=== PATIENT | female | born 1985 | race Caucasian/White ===

== ENCOUNTER 2020-09-20 12:00 | Emergency (ER) | payer OTHER, SELFPAY ==
--- NOTE | ~2020-09-20 | XR_ITS ---
EXAMINATION: XR foot LT min 3V DATE: 09/20/2020 12:28 INDICATION: Left foot injury. TECHNIQUE: 4 views of left foot were obtained. COMPARISON: None. FINDINGS: Bone alignment is normal. No fracture. There is mild osteoarthritis of first metatarsophala ngeal joint and talonavicular joint. There are enthesophytes at the posterior and plantar aspects of calcaneal tuberosity. IMPRESSION: 1. Mild polyarticular osteoarthritis. Reviewed, dictated and finalized at location A. ANOLOGY PROFESSOR
[2020-09-20 12:19] VITALS: BP 134/83; PULSE 70; RESP 18; TEMP 36.8; O2SAT 100
--- NOTE | 2020-09-20 12:27 | ED.LOWEXIN ---
HPI - Extremity Injury (Lower) General Chief Complaint: Extremity Injury, Lower Stated Complaint: Left Foot Pain Time Seen by Provider: 09/20/20 12:27 Source: patient Mode of arrival: ambulatory Limitations: no limitations History of Present Illness HPI Narrative: Kylah Mcdonald is a 35 yo female with a PMH of HTN who came to [facility] with pain in the fourth the fifth toe of the left foot after kicking hover board this morning.(6 hrs POA). She saw her PCP this morning and he told her to come get an x-ray. Rates pain as she rated pain as 9 out of 10 on her fourth toe her fifth toe feels numb Related Data Home Medications Medication Instructions Recorded Confirmed hydrochlorothiazide [HydroDiuril] 25 mg PO DAILY 09/20/20 09/20/20 Allergies Allergy/AdvReac Type Severity Reaction Status Date / Time amoxicillin Allergy Unknown unknown Verified 07/19/18 19:59 clavulanic acid Allergy Unknown unknown Verified 07/19/18 19:59 desloratadine Allergy Unknown unknown Verified 07/19/18 19:59 ketorolac Allergy Unknown unknown Verified 07/19/18 19:59 Review of Systems Review of Systems: Narrative: CONSTITUTIONAL: Denies fever, chills, sweats. EYES: Denies visual changes, redness, discharge. ENT: Denies rhinorrhea, congestion, sore throat, otalgia. CARDIOVASCULAR: Denies chest pain, palpitations, edema. RESPIRATORY: Denies dyspnea, wheezing, cough GASTROINTESTINAL: Denies abdominal pain, nausea, vomiting, diarrhea. GENITOURINARY: Denies dysuria, hematuria, abnormal discharge SKIN: Denies rash or itching. NEUROLOGIC: Denies numbness, or focal weakness. PSYCHIATRIC: Denies anxiety or depression. Left foot pain in the fourth and fifth toe, moderate swelling PMFSH Past Medical History Medical History HTN (hypertension) Family History Family History Other Hypertension Social History Social History (Updated 09/20/20 @ 12:29 by Linda Mccabe CNP) Smoking status: Never smoker Alcohol intake: current Comments At time of signature, I agree with nursing past medical, surgical, social and family history. There is no relevant family history pertinent to the presenting complaint. Exam Narrative: Exam Narrative: GENERAL: This is a well-nourished, well-developed patient, in moderate distress. HEAD: normocephalic, atraumatic. EYES: Sclera clear/white. Vision is grossly intact. EARS: External ears normal. Hearing grossly intact. NOSE: External nose normal without nasal discharge, nares without redness, no rhinorrhea. THROAT: Mucous membranes moist, NECK: Neck supple, CARDIOVASCULAR: Regular rate and rhythm without murmurs, gallops, or rubs. RESPIRATORY: Clear to auscultation. Breath sounds equal bilaterally. No wheezes, rales, or rhonchi. GASTROINTESTINAL: Abdomen soft, SKIN: warm, intact with no suspicious lesions or rash, good texture and turgor. NEURO: awake, alert, and oriented to person, place and time. There were no obvious focal neurologic abnormalities. Steady gait EXTREMITIES: Normal range of motion. Left foot fourth and fifth toe redness in her fifth toe on the distal and m moderate pain in the fourth and fifth toe, toes are taped and she states that they really hurts when she tries to walk BACK: Nontender without deformity Course Course Emergency Course: Marylou Mcdonald is a 35-year-old female who had her foot on a hover board this morning around 6:00, complaining of pain in her fourth and fifth toe X-ray shows mild polyarticular osteoarthritis Nurse Arnoldo taped toes, postop shoe, neurovascularly intact, started on [place], ice. elevation -follow-up with PCP Vital Signs Vital signs: Vital Signs Temperature 98.3 F 09/20/20 12:19 Pulse Rate 70 09/20/20 12:19 Respiratory Rate 18 09/20/20 12:19 Blood Pressure 134/83 09/20/20 12:19 Pulse Oximetry 100 09/20/20 12:19 Temperature 98.
== END 2020-09-20 12:55 | disposition home or self-care (01) ==
PROVIDERS: Emergency Provider Nurse Practitioner; PCP Family Medicine
DX: S93.505A Unspecified sprain of left lesser toe(s), initial encounter (principal); W22.8XXA Striking against or struck by other objects, initial encounter; I10 Essential (primary) hypertension
CPT/HCPCS: 73630; 99213; G0463

== ENCOUNTER 2021-04-09 09:39 | Emergency (ER) | payer OTHER, SELFPAY ==
[2021-04-09 10:10] VITALS: BP 145/97; PULSE 90; RESP 16; TEMP 36.4; O2SAT 99
--- NOTE | 2021-04-09 11:23 | ED.GENADULT ---
HPI - General Adult General Chief complaint: Upper Respiratory Infection Stated complaint: cough/sore throat/congestion Source: patient Mode of arrival: ambulatory Limitations: no limitations History of Present Illness HPI narrative: Patient is a 36-year-old female who presents to the [facility] via POV for evaluation of a sore throat that began 3 to 4 days ago. She also reports dry cough, nasal congestion, and myalgias. Additionally, she reports pain with deep inspiration. Tylenol provides minimal relief. Swallowing worsens throat pain. She reports her throat pain feels like strep . She has not vaccinated against Covid. She denies known exposure or sick contacts. Patient is requesting Covid testing since her employer is requiring a negative test to return to work. Related Data Home Medications Medication Instructions Recorded Confirmed hydrochlorothiazide [HydroDiuril] 25 mg PO DAILY 09/20/20 04/09/21 Allergies Allergy/AdvReac Type Severity Reaction Status Date / Time amoxicillin Allergy Unknown unknown Verified 04/09/21 10:36 clavulanic acid Allergy Unknown unknown Verified 04/09/21 10:36 desloratadine Allergy Unknown unknown Verified 04/09/21 10:36 ketorolac Allergy Unknown unknown Verified 04/09/21 10:36 Review of Systems Review of Systems: Pertinent negatives: fever, chills, poor p.o. intake, myalgias, flu-like symptoms, ear pain/drainage, sinus trouble, headache, rhinorrhea, lymphadenopathy, dizziness, LOC, inability to swallow, drooling, hoarseness, halitosis, abdominal pain, nausea, vomiting, diarrhea, cough, wheezing, sob, chest pain, heart murmurs, and heart palpations. PMFSH Past Medical History Medical History (Updated 04/09/21 @ 11:59 by CINDA Hall, ) HTN (hypertension) Family History Family History Other Hypertension Social History Social History Smoking status: Never smoker Alcohol intake: current Comments I have reviewed and agree with the patient's past medical, surgical, social, and family hx as documented by the RN. There is no relevant family history pertinent to the presenting complaint. Exam Narrative: GENERAL: Well-appearing, well-nourished, and in no acute distress. HEAD: Normocephalic, atraumatic. No sinus tenderness or facial swelling appreciated. EYES: PERRLA and EOMI. No evidence of erythema, swelling, or drainage. ENT: Bilateral external ears and ear canals normal. Bilateral TMs are normal.No TM perforation. Nares clear, no rhinorrhea or epistaxis. Bilateral turbinates moderately erythematous and edematous. Mucous membranes moist and pink. Uvula is midline without erythema and swelling. Bilateral tonsils are mildly erythematous subtle swelling. No evidence of petechial rash, cobblestoning, lesions, ulcers, exudates, peritonsillar abscess, tenting, or drooling. Breath odor and voice normal. NECK: Supple. No Lymphadenopathy or nuchal rigidity appreciated. CHEST: Bilateral lung rooney are clear to auscultation. No respiratory distress. No evidence of cough or pleuritic cp upon examination. HEART: Regular rate and rhythm. No murmur, gallop, or rub heard. EXTREMITIES: Normal range of motion. No edema. SKIN: Warm, dry, no rash. NEURO: No focal deficits. Alert and oriented x3. Course Vital Signs Vital signs: Vital Signs Temperature 97.6 F 04/09/21 10:10 Pulse Rate 90 04/09/21 10:10 Respiratory Rate 16 04/09/21 10:10 Blood Pressure 145/97 H 04/09/21 10:10 Pulse Oximetry 99 04/09/21 10:10 Temperature 97.6 F 04/09/21 10:10 Pulse Rate 90 04/09/21 10:10 Respiratory Rate 16 04/09/21 10:10 Blood Pressure 145/97 H 04/09/21 10:10 Pulse Oximetry 99 04/09/21 10:10 Due to an elevated blood pressure, I had a detailed discussion with the patient and/or guardian regarding the need for follow-up with
[2021-04-10 16:55] LABS: SARS-CoV-2 RNA PCR Negative
== END 2021-04-09 12:08 | disposition home or self-care (01) ==
PROVIDERS: Emergency Provider Nurse Practitioner Family; PCP Nurse Practitioner Family
DX: J06.9 Acute upper respiratory infection, unspecified (principal); Z20.822 Contact with and (suspected) exposure to COVID-19; I10 Essential (primary) hypertension
CPT/HCPCS: 87081; 87880; 99213; C9803; G0463; U0003; U0005

== ENCOUNTER 2021-07-11 10:52 | Emergency (ER) | payer OTHER, SELFPAY ==
[2021-07-11 11:14] VITALS: BP 148/87; PULSE 99; RESP 14; TEMP 37.3; O2SAT 98
== END 2021-07-11 12:00 | disposition left against medical advice (07) ==
PROVIDERS: PCP Nurse Practitioner Family
DX: Z53.21 Procedure and treatment not carried out due to patient leaving prior to being seen by health care provider (principal)
CPT/HCPCS: 99199

== ENCOUNTER 2021-07-11 16:24 | Emergency (ER) | payer OTHER, SELFPAY ==
--- NOTE | ~2021-07-11 | XR_ITS ---
EXAMINATION: XR chest 2V EXAM DATE: 07/11/2021 16:48 INDICATION: Shortness of breath. TECHNIQUE: Frontal and lateral projections of the chest obtained and reviewed. There is no prior tony dy for comparison. FINDINGS: The lungs are clear. There are no pleural effusions. The cardiomediastinal silhouette is within normal limits. There is no pneumothorax suspected. The bones and soft tissues are unremarkab le. IMPRESSION: Normal chest x-ray exam. Reviewed, dictated and finalized at location A. HER PRODUCTION MACHINE OPERATOR IMPRESSION: Normal chest x-ray exam.
--- NOTE | 2021-07-11 16:32 | ED.URI ---
HPI - URI/Sore Throat General Chief Complaint: Upper Respiratory Infection Stated Complaint: Covid Time Seen by Provider: 07/11/21 16:32 Source: patient, RN notes reviewed and old records reviewed Mode of arrival: ambulatory Limitations: no limitations History of Present Illness HPI Narrative: 36-year-old female presents to the [facility] with complaints of cough and shortness of breath. States she tested positive for Covid at home 2 days ago. Is concerned that she might have pneumonia. Patient states that she just started symptoms yesterday. Patient states that she does have a history of allergies and asthma. Has not had to use her inhaler. States she was very concerned for pneumonia Related Data Home Medications Medication Instructions Recorded Confirmed hydrochlorothiazide [HydroDiuril] 25 mg PO DAILY 09/20/20 07/11/21 metformin 500 mg PO BID 07/11/21 07/11/21 Allergies Allergy/AdvReac Type Severity Reaction Status Date / Time amoxicillin Allergy Unknown unknown Verified 07/11/21 16:33 clavulanic acid Allergy Unknown unknown Verified 07/11/21 16:33 desloratadine Allergy Unknown unknown Verified 07/11/21 16:33 ketorolac Allergy Unknown unknown Verified 07/11/21 16:33 Review of Systems Review of Systems: All systems reviewed & are unremarkable except as noted in HPI and below Constitutional: Constitutional: Reports as per HPI, Denies chills and Reports fever(s) Eyes: Eyes: Reports no additional eye complaints ENT: Reports system reviewed and no additional complaints, except as documented Cardiovascular: Cardiovascular: Denies chest pain Respiratory: Respiratory: Reports as per HPI, Denies chest congestion, Reports cough, Reports dyspnea and Denies wheezing Gastrointestinal: Gastrointestinal: Reports no additional gastrointestinal complaints, Denies abdominal pain, Denies diarrhea, Denies nausea and Denies vomiting Genitourinary: Genitourinary: Reports no additional female genitourinary complaints Musculoskeletal: Musculoskeletal: Reports as per HPI, Denies back pain and Reports myalgias Integumentary/Breasts: Skin/Breast: Reports system reviewed and no additional complaints, except as docu Neurologic: Reports system reviewed and no additional complaints, except as documented Psychiatric: Psychiatric: Reports no additional psychiatric complaints Allergic/Immunologic: Allergic/Immunologic: Reports no additional allergic/immunologic complaints PMFSH Past Medical History Medical History HTN (hypertension) Family History Family History Other Hypertension Social History Social History Smoking status: Never smoker Alcohol intake: current Comments At the time of my signature, I reviewed and agree with the nursing past medical, surgical, social, and family history. There is no relevant family history pertinent to the patient complaint. Exam Const: General: healthy appearing, no acute distress and alert Nutritional Appearance: well nourished and obese morbidly obese Orientation/consciousness: patient oriented x3 Limitations: no limitations HENMT: Head: normal to inspection Ears: external ears normal, TM's normal bilaterally and EAC's normal General nose exam: Normal external nose present and Nasal discharge present clear Face and sinus: normal facial exam and sinus tenderness frontal and maxillary Throat: tonsils normal, uvula midline and postnasal drainage Eyes: Conjunctivae: conjunctivae normal Pupils: Equal, round and reactive pupils present Neck: Neck: normal visual inspection, no lymphadenopathy and no meningeal signs Chest: Chest palpation & inspection: normal inspection of the chest Resp: Effort & Inspection: normal respiratory effort and no use of accessory muscles Auscultation: clear to auscultation bilaterally, no crackles, no rale
[2021-07-11 16:33] VITALS: BP 142/95; PULSE 93; RESP 18; TEMP 38.2; O2SAT 99
[2021-07-11 16:36] VITALS: BP 142/95; PULSE 93; RESP 18; TEMP 38.2; O2SAT 99
== END 2021-07-11 17:30 | disposition home or self-care (01) ==
PROVIDERS: Emergency Provider Nurse Practitioner; PCP Nurse Practitioner Family
DX: B34.9 Viral infection, unspecified (principal); I10 Essential (primary) hypertension
CPT/HCPCS: 71046; 87804; 99213; G0463

== ENCOUNTER 2021-09-30 16:33 | Emergency (ER) | payer OTHER, SELFPAY ==
--- NOTE | ~2021-09-30 | XR_ITS ---
EXAMINATION: XR lumbar spine 2-3V EXAM DATE: 09/30/2021 17:29 INDICATION: Mid low back pain today ? etiology unknown. TECHNIQUE: Lumber spine frontal, lateral, lateral L5-S1 projections for interpretation. There is no prior study for comparison. FINDINGS: No spondylolysis. Mild lumbar disc disease, mild and facet arthropathy. Sacrum, sacroiliac joints, sacral arcuate lines are intact. There are no bony erosions identified. Paraspinal soft tiss ue is unremarkable. IMPRESSION: 1. Mild lumbar spondylosis. 2. No acute findings. Reviewed, dictated and finalized at location G.
[2021-09-30 16:41] VITALS: BP 147/91; PULSE 88; RESP 16; TEMP 37.1; O2SAT 99
--- NOTE | 2021-09-30 16:43 | ED.BACK ---
HPI - Back Pain/Injury General Chief Complaint: Back Pain/Injury Stated Complaint: LOW BACK PAIN Time Seen by Provider: 09/30/21 16:48 Source: patient, family, RN notes reviewed and old records reviewed Mode of arrival: ambulatory Limitations: no limitations History of Present Illness HPI Narrative: 36-year-old female presents to the [facility] with complaints of mid lower back pain since 10 AM. States that she was bending over at 10 AM when she felt a pop in the lower spine area. Has a history of degenerative disc disease, PCOS, and arthritis. Reports taking Tylenol alternating with Motrin since pain started. Tried calling her primary care provider who is instructed to go to the [facility] or the emergency room for evaluation No loss or retention of bowel or bladder. No saddle anesthesia. Walks with a steady gait but appears to be uncomfortable. No numbness or tingling in extremities MD elicited complaint: back pain Related Data Home Medications Medication Instructions Recorded Confirmed hydrochlorothiazide [HydroDiuril] 25 mg PO DAILY 09/20/20 09/30/21 metformin 500 mg PO BID 07/11/21 09/30/21 albuterol sulfate 2 inh INHALATION PRN PRN 09/30/21 09/30/21 Allergies Allergy/AdvReac Type Severity Reaction Status Date / Time desloratadine Allergy Severe Anaphylaxis Verified 09/30/21 18:00 amoxicillin AdvReac Mild Gastrointestinal Verified 09/30/21 18:00 Upset clavulanic acid AdvReac Mild Gastrointestinal Verified 09/30/21 18:00 Upset ketorolac AdvReac Mild Hives Verified 09/30/21 18:00 Review of Systems Review of Systems: All systems reviewed & are unremarkable except as noted in HPI and below Constitutional: Constitutional: Reports no additional constitutional complaints, Denies fever(s) and Denies weakness Eyes: Eyes: Reports no additional eye complaints ENT: Reports system reviewed and no additional complaints, except as documented Cardiovascular: Cardiovascular: Reports no additional cardiovascular complaints and Denies chest pain Respiratory: Respiratory: Reports no additional respiratory complaints, Denies cough and Denies dyspnea Gastrointestinal: Gastrointestinal: Reports no additional gastrointestinal complaints, Denies abdominal pain, Denies nausea and Denies vomiting Genitourinary: Genitourinary: Denies urinary incontinence Musculoskeletal: Musculoskeletal: Reports as per HPI, Reports back pain (Center) and Denies numbness Integumentary/Breasts: Skin/Breast: Reports system reviewed and no additional complaints, except as docu Neurologic: Reports system reviewed and no additional complaints, except as documented, Denies focal weakness, Denies numbness and Denies weakness Psychiatric: Psychiatric: Reports no additional psychiatric complaints Allergic/Immunologic: Allergic/Immunologic: Reports no additional allergic/immunologic complaints PMFSH Past Medical History Medical History (Updated 09/30/21 @ 20:43 by Marylin Villasenor APRN) HTN (hypertension) Polycystic ovarian syndrome Family History Family History Mother Hypertension Social History Social History Smoking status: Never smoker Alcohol intake: current Comments At the time of my signature, I reviewed and agree with the nursing past medical, surgical, social, and family history. There is no relevant family history pertinent to the patient complaint. Exam Const: General: healthy appearing, no acute distress and alert Nutritional Appearance: well nourished Orientation/consciousness: patient oriented x3 Limitations: no limitations HENMT: Head: normal to inspection Ears: external ears normal Eyes: Pupils: Equal, round and reactive pupils present Neck: Neck: normal visual inspection, no lymphadenopathy and no meningeal signs Chest: Chest palpation & inspection: normal inspection of the chest Resp: Effort
== END 2021-09-30 17:47 | disposition home or self-care (01) ==
PROVIDERS: Emergency Provider Nurse Practitioner; PCP Nurse Practitioner Family
DX: S39.012A Strain of muscle, fascia and tendon of lower back, initial encounter (principal); X50.9XXA Other and unspecified overexertion or strenuous movements or postures, initial encounter; M47.816 Spondylosis without myelopathy or radiculopathy, lumbar region; I10 Essential (primary) hypertension; E28.2 Polycystic ovarian syndrome
CPT/HCPCS: 72100; 99213; G0463

== ENCOUNTER → 2022-02-09 10:42 | Outpatient (CLI) | payer OTHER, SELFPAY ==
--- NOTE | ~2022-02-09 | US_ITS ---
EXAMINATION: US thyroid DATE: 02/09/2022 11:10 INDICATION: Goiter TECHNIQUE: Multiple ultrasound images of the thyroid were obtained. COMPARISON: None. FINDINGS: The right thyroid lobe measures 5.0 x 1.6 x 1.8 cm. The left thyroid lobe measures 4.7 x 1.7 x 1.4 c m. 11 mm wider than tall solid isoechoic, centrally hypoechoic nodule with ill-defined margins and w ithout echogenic foci in the left thyroid lobe. (TI-RADS 4, moderately suspicious , FNA if >=1.5 cm, annual followup is >=1 cm). No other thyroid nodules identified. There is normal echotexture, echogen icity and vascular flow throughout the thyroid gland. IMPRESSION: 1. 11 mm TI-RADS 4 left thyroid nodule for which annual follow-up ultrasound would be recommended. Reviewed, dictated and finalized at location A. IMPRESSION: 1. 11 mm TI-RADS 4 left thyroid nodule for which annual follow-up ultrasound wo uld be recommended.
== END ==
PROVIDERS: PCP Internal Medicine Endocrinology, Diabetes & Metabolism; Visit Provider Internal Medicine Endocrinology, Diabetes & Metabolism
DX: E04.1 Nontoxic single thyroid nodule (principal)
CPT/HCPCS: 76536

== ENCOUNTER 2022-08-18 11:54 | Outpatient (CLI) | payer OTHER, SELFPAY ==
--- NOTE | ~2022-08-18 | XR_ITS ---
Supine and upright views of the abdomen Clinical history: Abdominal pain Findings: Bowel gas pattern is nonspecific. No evidence for obstruction or free air. No abnormal mass lesion or calcification is seen. Osseous structures are intact. Impression: No significant abnormality is seen. Reviewed, dictated and finalized at [facility]. L CUSTODIAN Impression: No significant abnormality is seen.
== END 2022-08-18 11:55 | disposition home or self-care (01) ==
PROVIDERS: PCP Nurse Practitioner Family; Visit Provider Nurse Practitioner Family
DX: R10.9 Unspecified abdominal pain (principal)
CPT/HCPCS: 74019

== ENCOUNTER 2022-10-24 10:40 | Emergency (ER) | payer OTHER, SELFPAY ==
--- NOTE | ~2022-10-24 | US_ITS ---
EXAMINATION: US OB <=14 wk fetus w TV DATE: 10/24/2022 12:18 INDICATION: Spotting during first trimester TECHNIQUE: Real-time pelvic transabdominal and transvaginal ultrasound was performed. COMPARISON: None. FINDINGS: The uterus measures 12.9 x 7.2 x 5.9 cm. There is an intrauterine gestational sac. The feta l pole is not visualized. The mean sac diameter measures 1.8 cm, which correlates with an estimated g estational age of 6 weeks and 5 day(s) (+/-) 4 day(s). The ovaries are not visualized however no adnexal abnormality is seen. There is no free fluid in the pelvis. IMPRESSION: 1. Intrauterine gestational sac with an estimated gestational age of 6 weeks and 5 day(s) (+/-) 4 day (s) and an estimated delivery date of 06/14/2023 based on mean sac diameter. pole not yet visual ized, possibly due to early . Reviewed, dictated and finalized at location A. IMPRESSION: 1. Intrauterine gestational sac with an estimated gestational age of 6 weeks an d 5 day(s) (+/-) 4 day(s) and an estimated delivery date of 06/14/2023 based on mean sac diameter. pole not yet visualized, possibly due to early pregnan cy.
[2022-10-24 10:43] VITALS: BP 161/93; PULSE 90; RESP 16; TEMP 36.7; O2SAT 100
[2022-10-24 11:00] LABS: Basophils Percent Auto 0.4 % (0.2-1.2); Eosinophils Absolute Auto 0.2 K/mm3 (0-0.3); Eosinophils Percent Auto 2.2 % (0-4.4); Hematocrit 39.5 % (37.0-47.0); Hemoglobin 12.7 g/dL (12.0-15.0); Immature Granulocyte Absolute 0.03 K/mm3 (0.00-0.031); Immature Granulocyte Percent A 0.3 % (0-0.5); Lymphocytes Absolute Auto 1.83 K/mm3 (0.9-3.2); Lymphocytes Percent Auto 19.4 % (18.3-44.2); Mean Corpuscular HGB Conc 32.2 g/dl (32-36); Mean Corpuscular Hemoglobin 28.6 pg (26-34); Monocytes Absolute Auto 0.4 K/mm3 (0.1-0.6); Monocytes Percent Auto 4.4 % (2.6-8.5); Neutrophils Absolute Auto 6.9 K/mm3 (1.3-6.7); Neutrophils Percent Auto 73.3 % (45.5-73.1); Platelet Count Result 268 k/mm3 (150-375); Red Blood Count 4.44 M/mm3 (4.2-5.4); Red Cell Distribution Width 14.6 % (11.5-14.5); White Blood Count 9.4 K/mm3 (4.5-10.0)
--- NOTE | 2022-10-24 12:45 | ED.GENADULT ---
HPI - General Adult General Chief complaint: Vaginal Bleeding Stated complaint: Newly with abdominal cramps Time Seen by Provider: 10/24/22 11:34 History of Present Illness HPI narrative: Patient is a 37-year-old female who presents to the ER with vaginal bleeding and spotting. Spotting x3 today. Found out 4 days ago she was and has had 2 beta hCGs. She is a positive. She is a G8, P2 SAB 5. She gets her care through [facility] [place]. She is also had an ultrasound that showed a gestational sac at 6 weeks and 2 days couple days ago. Patient reports she is having some mild cramping and some nausea. Related Data Home Medications Medication Instructions Recorded Confirmed hydrochlorothiazide 25 mg tablet 25 mg PO DAILY 09/20/20 09/30/21 metformin 500 mg tablet,extended 500 mg PO BID 07/11/21 09/30/21 release 24 hr albuterol sulfate 90 mcg/actuation 2 inh inhalation PRN PRN Shortness 09/30/21 09/30/21 aerosol inhaler Of Breath Or Wheezing Allergies Allergy/AdvReac Type Severity Reaction Status Date / Time desloratadine Allergy Severe Anaphylaxis Verified 10/24/22 11:35 amoxicillin AdvReac Mild Gastrointestinal Verified 10/24/22 11:35 Upset clavulanic acid AdvReac Mild Gastrointestinal Verified 10/24/22 11:35 Upset ketorolac AdvReac Mild Hives Verified 10/24/22 11:35 Review of Systems Review of Systems: All systems reviewed & are unremarkable except as noted in HPI and below Constitutional: Constitutional: Denies chills and Denies fever(s) Cardiovascular: Cardiovascular: Denies chest pain, Denies rapid heart rate and Denies radiating jaw, neck or arm pain Respiratory: Respiratory: Denies cough and Denies dyspnea Gastrointestinal: Gastrointestinal: Denies abdominal pain, Reports nausea and Denies vomiting Genitourinary: Genitourinary: Reports abnormal vaginal bleeding, Denies dysuria and Denies pelvic pain PMF Past Medical History Medical History (Updated 10/24/22 @ 13:01 by Massimo Barroso MD) HTN (hypertension) Polycystic ovarian syndrome Family History Family History Mother Hypertension Social History Social History (Reviewed 03/22/22 @ 20:42 by JOSS Bhatti Smoking status: Never smoker Alcohol intake: current Exam Narrative: GENERAL: Well-appearing, morbidly obese, and in no acute distress. HEAD: Normocephalic, atraumatic. ENT: Mucous membranes moist. CHEST: Clear to auscultation. No respiratory distress. HEART: Regular rate and rhythm. Normal peripheral pulses. ABDOMEN: Soft, nontender, nondistended. EXTREMITIES: Normal range of motion. No edema. SKIN: Warm, dry, no rash. NEURO: Alert and oriented x3. PSYCH: Normal mood and affect. Course Course Emergency Course: Patient informed of lab and imaging results. Her beta-hCG is trending upward from 12,000 and is currently at 18,600. Her gestational sac measures 6 weeks 5 days but is still without pole which she is aware of. She has being diagnosed with a threatened miscarriage and she is understanding of this as well. She will be discharged and we recommend follow-up with her OB. Vital Signs Vital signs: Vital Signs Temperature 98.0 F 10/24/22 10:43 Pulse Rate 90 10/24/22 10:43 Respiratory Rate 16 10/24/22 10:43 Blood Pressure 161/93 H 10/24/22 10:43 Pulse Oximetry 100 10/24/22 10:43 Oxygen Delivery Room Air 10/24/22 10:43 Temperature 98.0 F 10/24/22 10:43 Pulse Rate 90 10/24/22 10:43 Respiratory Rate 16 10/24/22 10:43 Blood Pressure 161/93 H 10/24/22 10:43 Pulse Oximetry 100 10/24/22 10:43 Oxygen Delivery Room Air 10/24/22 10:43 Medical Decision Making Vital Signs Vital Signs: Vital Signs Temperature 98.0 F 10/24/22 10:43 Pulse Rate 90 10/24/22 10:43 Respiratory Rate 16 10/24/22 10:43 Blood Pressure 161/93 H 10/24/22 10:43 Pulse Oximetry 100
== END 2022-10-24 13:17 | disposition home or self-care (01) ==
PROVIDERS: Emergency Provider Emergency Medicine; PCP Nurse Practitioner Family
DX: O20.0 Threatened abortion (principal); O10.911 Unspecified pre-existing hypertension complicating pregnancy, first trimester; O99.281 Endocrine, nutritional and metabolic diseases complicating pregnancy, first trimester; E28.2 Polycystic ovarian syndrome; Z79.84 Long term (current) use of oral hypoglycemic drugs; Z3A.01 Less than 8 weeks gestation of pregnancy
CPT/HCPCS: 36415; 76801; 76817; 84702; 85025; 85461; 86850; 86900; 86901; 99284

== ENCOUNTER 2023-02-12 14:20 | Outpatient (CLI) | payer OTHER, SELFPAY ==
[2023-02-12] VITALS (7 sets, daily range): BP systolic 125–148; BP diastolic 64–71; PULSE 82–97; RESP 18–20; TEMP 36.2–36.7; BMI 58.1
--- NOTE | 2023-02-12 15:40 | PC.NURSE ---
Dr. Bloom informed of pt's arrival at 22 4/7 wks with c/o frontal headache since noon that she currently rates as 8 out of 10. Has had halos, spots, and stars since her headache started. Pt has history of migraines with these same visual auras that normally resolve with Tylenol and sleep. Pt also feeling intermittent sharp/ stabbing right upper abdominal pain she rates as a 6 out of 10. Denies heartburn or reflux. Pt has CHTN that she takes HCTZ for. Informed of BP's. Obtained 30 mins of intermittent FHR tracing on baby- FHT's 150's. Orders received for labs, Tylenol, and Pepcid.
[2023-02-12] MEDS: ACETAMINOPHEN 500 MG TABLET 1000 MG PO (16:10)
[2023-02-12] MEDS: FAMOTIDINE 20 MG TABLET PO (16:14)
[2023-02-12 16:25] LABS: Basophils Percent Auto 0.2 % (0.2-1.2); Eosinophils Absolute Auto 0.1 K/mm3 (0-0.3); Eosinophils Percent Auto 0.9 % (0-4.4); Hematocrit 31.9 % (37.0-47.0); Hemoglobin 10.5 g/dL (12.0-15.0); Immature Granulocyte Absolute 0.04 K/mm3 (0.00-0.031); Immature Granulocyte Percent A 0.4 % (0-0.5); Lymphocytes Absolute Auto 1.36 K/mm3 (0.9-3.2); Lymphocytes Percent Auto 13.3 % (18.3-44.2); Mean Corpuscular HGB Conc 32.9 g/dl (32-36); Mean Corpuscular Hemoglobin 29.3 pg (26-34); Mean Corpuscular Volume 89.1 fl (80-100); Mean Platelet Volume 9.5 fl (7.4-10.4); Monocytes Absolute Auto 0.7 K/mm3 (0.1-0.6); Monocytes Percent Auto 6.6 % (2.6-8.5); Neutrophils Percent Auto 78.6 % (45.5-73.1); Platelet Count Result 253 k/mm3 (150-375); Red Blood Count 3.58 M/mm3 (4.2-5.4); Red Cell Distribution Width 14.7 % (11.5-14.5); White Blood Count 10.2 K/mm3 (4.5-10.0)
[2023-02-12 16:31] LABS: Add Urine Microscopic? YES; Appearance Urine Clear (Clear); Bilirubin Urine Negative (Negative); Blood Urine Negative (Negative); Color Urine Yellow (Yellow); Glucose Urine UA Negative (Negative); Ketones Urine 1+ mg/dL (Negative); Leukocyte Esterase Ur Negative LEU/UL (Negative); Nitrate Urine Negative (Negative); Protein Urine Negative (Negative); Urobilinogen Urine 0.2 mg/dL (<2.0)
[2023-02-12 16:34] LABS: Creatinine Urine 29.5 mg/dL; Total Protein Urine Random 7 mg/dL; Ur Ttl Prot Creatinine Ratio 0.24 mg/mg (0-0.20)
[2023-02-12 16:45] LABS: Potassium 3.4 mmol/L (3.4-5.0)
[2023-02-12 16:55] LABS: Alanine Aminotransferase 17 U/L (6-35); Albumin Level 3.3 g/dL (3.5-5.1); Alkaline Phosphatase 54 U/L (38-126); Anion Gap 8 mmol/L (8-16); Aspartate Amino Transferase 16 U/L (14-36); Bilirubin,Total 0.2 mg/dL (0.2-1.3); Blood Urea Nitrogen 9 mg/dL (7-17); Carbon Dioxide 21 mmol/L (22-30); Chloride 104 mmol/L (98-107); Estimated Glomerular Filt Rate > 60; Glucose 105 mg/dL (65-110); Sodium 133 mmol/L (137-145); Uric Acid 4.9 mg/dL (2.5-7.5)
--- NOTE | 2023-02-12 17:52 | PC.NURSE ---
Dr. Bloom informed of lab results. Pt just feeling a dull headache now that she rates a 4 and a dull RUQ ache she rates a 2. Still has the visual disturbance, but pt states she usually has that for 1 day after her migraine. Order received to discharge pt to home with instructions/ supplies for a 24 hr urine collection.
== END 2023-02-12 18:45 | disposition home or self-care (01) ==
LOC: ANHOBOP 14:29 → ANHOBPP 14:30
PROVIDERS: PCP Nurse Practitioner Family; Visit Provider Obstetrics & Gynecology
DX: Z34.90 Encounter for supervision of normal pregnancy, unspecified, unspecified trimester (principal); R51.9 Headache, unspecified; M79.89 Other specified soft tissue disorders; Z3A.00 Weeks of gestation of pregnancy not specified
CPT/HCPCS: 36415; 59025; 80053; 81001; 82570; 84156; 84550; 85025; 99199; A9270

== ENCOUNTER 2023-02-13 18:59 | Outpatient (NON) | payer OTHER, SELFPAY ==
[2023-02-13 19:35] VITALS: BMI 58.1
[2023-02-13 19:45] LABS: Collection Time Urine 24 HOURS
[2023-02-13 19:48] LABS: Total Volume 24 Hour Urine 2650 ml
[2023-02-13 19:54] LABS: Creatinine Clearance Urine 175.1 ml/min (75-125); Creatinine Urine 78.5 mg/dL; Patient Weight 328 Lbs; Total Protein Urine 24 Hr 159 mg/24hr (28-141); Total Protein Urine Random 6 mg/dL
[2023-02-13 20:00] LABS: Specific Gravity Ur 1.015
== END 2023-02-13 19:00 | disposition home or self-care (01) ==
PROVIDERS: PCP Nurse Practitioner Family; Visit Provider Obstetrics & Gynecology
DX: G43.909 Migraine, unspecified, not intractable, without status migrainosus (principal)
CPT/HCPCS: 81050; 82575; 84156

== ENCOUNTER 2023-03-16 10:39 | Observation (INO) | payer OTHER, SELFPAY ==
--- NOTE | 2023-03-16 10:39 | OBADM ---
This patient, Kylah Francisco, admitted to the OB room OB Post 116 for observation. Patient/family oriented to hospital policies and general routines including ID bracelet, bed and alarms, visiting hours, pain management, procedures, bathroom and other care routines, personal items, smoking policy, room service/diet, and visiting hours. Patient/Family are encouraged to report perceived risks to care and to ask questions if they do not understand what they are told or what they should do.
[2023-03-16 11:00] VITALS: BMI 58.9
[2023-03-16 11:07] VITALS: BP 139/65; PULSE 87
[2023-03-16 11:16] VITALS: BP 124/67; PULSE 78
[2023-03-16 11:27] LABS: Basophils Percent Auto 0.2 % (0.2-1.2); Eosinophils Absolute Auto 0.2 K/mm3 (0-0.3); Eosinophils Percent Auto 1.4 % (0-4.4); Hematocrit 33.3 % (37.0-47.0); Hemoglobin 10.8 g/dL (12.0-15.0); Immature Granulocyte Absolute 0.07 K/mm3 (0.00-0.031); Immature Granulocyte Percent A 0.6 % (0-0.5); Mean Corpuscular HGB Conc 32.4 g/dl (32-36); Mean Corpuscular Hemoglobin 29.2 pg (26-34); Mean Platelet Volume 9.5 fl (7.4-10.4); Monocytes Absolute Auto 0.7 K/mm3 (0.1-0.6); Monocytes Percent Auto 6.4 % (2.6-8.5); Neutrophils Absolute Auto 9.1 K/mm3 (1.3-6.7); Neutrophils Percent Auto 78.4 % (45.5-73.1); Platelet Count Result 277 k/mm3 (150-375); Red Cell Distribution Width 14.9 % (11.5-14.5); White Blood Count 11.6 K/mm3 (4.5-10.0)
[2023-03-16 11:29] LABS: Appearance Urine Clear (Clear); Bilirubin Urine Negative (Negative); Blood Urine Negative (Negative); Color Urine Yellow (Yellow); Glucose Urine UA Negative (Negative); Ketones Urine Negative (Negative); Leukocyte Esterase Ur Negative LEU/UL (NEGATIVE); Nitrate Urine Negative (Negative); Protein Urine Negative (Negative); Specific Grav Ur 1.015 (1.001-1.035); Urobilinogen Urine 0.2 mg/dL (<2.0)
[2023-03-16 11:31] VITALS: BP 123/74; PULSE 86
[2023-03-16 11:35] LABS: Creatinine Urine 76.4 mg/dL; Total Protein Urine Random 12 mg/dL; Ur Ttl Prot Creatinine Ratio 0.16 mg/mg (0-0.20)
[2023-03-16 11:36] LABS: Add Urine Microscopic? NO
[2023-03-16 11:37] LABS: Alanine Aminotransferase 14 U/L (6-35); Albumin Level 3.4 g/dL (3.5-5.1); Alkaline Phosphatase 75 U/L (38-126); Anion Gap 7 mmol/L (8-16); Aspartate Amino Transferase 14 U/L (14-36); Bilirubin,Total 0.3 mg/dL (0.2-1.3); Blood Urea Nitrogen 9 mg/dL (7-17); Calcium 9.1 mg/dL (8.4-10.2); Carbon Dioxide 25 mmol/L (22-30); Chloride 103 mmol/L (98-107); Estimated Glomerular Filt Rate > 60; Glucose 110 mg/dL (65-110); Potassium 3.8 mmol/L (3.4-5.0); Sodium 135 mmol/L (137-145); Uric Acid 3.9 mg/dL (2.5-7.5)
[2023-03-16 11:46] VITALS: BP 122/60; PULSE 81
[2023-03-16 12:01] VITALS: BP 122/80; PULSE 138
[2023-03-16 12:16] VITALS: BP 123/59; PULSE 80
--- NOTE | 2023-03-19 13:44 | P.PNOB_ITS ---
OB - Triage/Final Diagnosis Visit Information Comments/Additional reasons for admission: I have assessed the risk for this patient, Kylah Francisco, and determined that she would benefit from observation care. Evaluation Laboratory results: Laboratory Tests 03/16/23 11:08 WBC 11.6 H RBC 3.70 L Hgb 10.8 L Hct 33.3 L MCV 90.0 MCH 29.2 MCHC 32.4 RDW 14.9 H Plt Count 277 MPV 9.5 Immature Gran % (Auto) 0.6 H Neut % (Auto) 78.4 H Lymph % (Auto) 13.0 L [place] % (Auto) 6.4 Eos % (Auto) 1.4 Baso % (Auto) 0.2 Lymph # (Auto) 1.50 [place] # (Auto) 0.7 H Eos # (Auto) 0.2 Baso # (Auto) 0.0 Abs Immat Gran (auto) 0.07 H Absolute Neuts (auto) 9.1 H Absolute Nucleated RBC 0.0 Nucleated RBC % 0.0 Sodium 135 L Potassium 3.8 Chloride 103 Carbon Dioxide 25 Anion Gap 7 L BUN 9 Creatinine 0.50 L Estim Creat Clear Calc Not Reportable Estimated GFR > 60 Glucose 110 Uric Acid 3.9 Calcium 9.1 Total Bilirubin 0.3 AST 14 ALT 14 Alkaline Phosphatase 75 Total Protein 7.0 Albumin 3.4 L Urine Color Yellow Urine Appearance Clear Urine pH 6.0 Ur Specific [place] 1.015 Urine Protein Negative Urine Glucose (UA) Negative Urine Ketones Negative Ur Blood (Man) Negative Urine Nitrate Negative Urine Bilirubin Negative Urine Urobilinogen 0.2 Ur Leukocyte Esterase Negative U Random Total Protein 12 Urine Creatinine 76.4 Protein/Creat Ratio 2 0.16 Final Diagnosis (1) contractions: Code(s): O47.00 - False labor before 37 completed weeks of gestation, unspecified trimester Status: Acute (2) Edema during : Code(s): O12.00 - Gestational edema, unspecified trimester Status: Acute
== END 2023-03-16 12:50 | disposition home or self-care (01) ==
PROVIDERS: Admitting Provider Obstetrics & Gynecology; PCP Nurse Practitioner Family; Visit Provider Obstetrics & Gynecology
DX: O47.02 False labor before 37 completed weeks of gestation, second trimester (principal); O12.02 Gestational edema, second trimester; Z3A.27 27 weeks gestation of pregnancy
CPT/HCPCS: 36415; 59025; 80053; 81003; 82570; 84156; 84550; 85025; 87086; G0378; G0379

== ENCOUNTER 2023-03-18 09:15 | Outpatient (RCR) | payer OTHER, SELFPAY | END 2023-03-18 13:26 | disposition home or self-care (01) | LOC: ANHDMC 09:15 | PROVIDERS: PCP Obstetrics & Gynecology | DX: O24.414 Gestational diabetes mellitus in pregnancy, insulin controlled (principal); Z3A.00 Weeks of gestation of pregnancy not specified; Z71.89 Other specified counseling | CPT/HCPCS: G0108 ==

== ENCOUNTER 2023-04-12 21:20 | Observation (INO) | payer OTHER, SELFPAY ==
[2023-04-12] VITALS (24 sets, daily range): BP systolic 138–149; BP diastolic 73–79; PULSE 92–124; RESP 16; TEMP 36.7; O2SAT 99–100
[2023-04-12 21:49] LABS: Basophils Percent Auto 0.3 % (0.2-1.2); Eosinophils Absolute Auto 0.1 K/mm3 (0-0.3); Eosinophils Percent Auto 1.2 % (0-4.4); Hematocrit 36.3 % (37.0-47.0); Hemoglobin 11.7 g/dL (12.0-15.0); Immature Granulocyte Absolute 0.07 K/mm3 (0.00-0.031); Immature Granulocyte Percent A 0.7 % (0-0.5); Lymphocytes Absolute Auto 1.77 K/mm3 (0.9-3.2); Mean Corpuscular HGB Conc 32.2 g/dl (32-36); Mean Corpuscular Hemoglobin 28.3 pg (26-34); Mean Corpuscular Volume 87.9 fl (80-100); Monocytes Absolute Auto 0.9 K/mm3 (0.1-0.6); Monocytes Percent Auto 8.2 % (2.6-8.5); Neutrophils Absolute Auto 7.6 K/mm3 (1.3-6.7); Neutrophils Percent Auto 72.6 % (45.5-73.1); Platelet Count Result 278 k/mm3 (150-375); Red Blood Count 4.13 M/mm3 (4.2-5.4); Red Cell Distribution Width 15.2 % (11.5-14.5); White Blood Count 10.4 K/mm3 (4.5-10.0)
[2023-04-12 21:51] LABS: Appearance Urine Clear (Clear); Bilirubin Urine Negative (Negative); Blood Urine Negative (Negative); Color Urine Yellow (Yellow); Glucose Urine UA Negative (Negative); Ketones Urine Trace mg/dL (Negative); Leukocyte Esterase Ur Negative LEU/UL (Negative); Nitrate Urine Negative (Negative); Protein Urine Negative (Negative); Specific Grav Ur 1.009 (1.001-1.035); Urobilinogen Urine 0.2 mg/dL (<2.0)
[2023-04-12 21:52] LABS: Add Urine Microscopic? NO
[2023-04-12 22:00] LABS: Alanine Aminotransferase 20 U/L (6-35); Albumin Level 3.5 g/dL (3.5-5.1); Alkaline Phosphatase 92 U/L (38-126); Anion Gap 6 mmol/L (8-16); Aspartate Amino Transferase 20 U/L (14-36); Bilirubin,Total 0.5 mg/dL (0.2-1.3); Blood Urea Nitrogen 9 mg/dL (7-17); Calcium 9.5 mg/dL (8.4-10.2); Carbon Dioxide 24 mmol/L (22-30); Chloride 104 mmol/L (98-107); Estimated Glomerular Filt Rate > 60; Glucose 127 mg/dL (65-110); Potassium 3.7 mmol/L (3.4-5.0); Sodium 134 mmol/L (137-145); Uric Acid 4.5 mg/dL (2.5-7.5)
--- NOTE | 2023-05-09 20:25 | PM.OBTRLD ---
OB - Triage/Final Diagnosis Visit Information Comments/Additional reasons for admission: I have assessed the risk for this patient, Kylah Francisco, and determined that she would benefit from observation care. Evaluation Laboratory results: Laboratory Tests 04/12/23 04/12/23 21:40 21:41 WBC 10.4 H RBC 4.13 L Hgb 11.7 L Hct 36.3 L MCV 87.9 MCH 28.3 MCHC 32.2 RDW 15.2 H Plt Count 278 MPV 10.0 Immature Gran % (Auto) 0.7 H Neut % (Auto) 72.6 Lymph % (Auto) 17.0 L [place] % (Auto) 8.2 Eos % (Auto) 1.2 Baso % (Auto) 0.3 Lymph # (Auto) 1.77 [place] # (Auto) 0.9 H Eos # (Auto) 0.1 Baso # (Auto) 0.0 Abs Immat Gran (auto) 0.07 H Absolute Neuts (auto) 7.6 H Absolute Nucleated RBC 0.0 Nucleated RBC % 0.0 Sodium 134 L Potassium 3.7 Chloride 104 Carbon Dioxide 24 Anion Gap 6 L BUN 9 Creatinine 0.50 L Estim Creat Clear Calc Not Reportable Estimated GFR > 60 Glucose 127 H Uric Acid 4.5 Calcium 9.5 Total Bilirubin 0.5 AST 20 ALT 20 Alkaline Phosphatase 92 Total Protein 7.0 Albumin 3.5 Urine Color Yellow Urine Appearance Clear Urine pH 7.0 Ur Specific [place] 1.009 Urine Protein Negative Urine Glucose (UA) Negative Urine Ketones Trace H Ur Blood (Man) Negative Urine Nitrate Negative Urine Bilirubin Negative Urine Urobilinogen 0.2 Leukocyte Esterase Rfl Negative Final Diagnosis (1) Amniotic fluid leaking: Code(s): O42.90 - Premature rupture of membranes, unspecified as to length of time between rupture and onset of labor, unspecified weeks of gestation Status: Acute
== END 2023-04-12 23:15 | disposition home or self-care (01) ==
LOC: ANHOBOP 21:35 → ANHOBPP 21:35
PROVIDERS: Admitting Provider Obstetrics & Gynecology; PCP Nurse Practitioner Family; Visit Provider Obstetrics & Gynecology
DX: O42.913 Preterm premature rupture of membranes, unspecified as to length of time between rupture and onset of labor, third trimester (principal); Z3A.31 31 weeks gestation of pregnancy
CPT/HCPCS: 36415; 59025; 80053; 81003; 84550; 85025; G0378; G0379

== ENCOUNTER 2023-04-21 10:24 | Outpatient (CLI) | payer OTHER, SELFPAY ==
--- NOTE | ~2023-04-21 | US_ITS ---
EXAMINATION: US OB BPP wo non-stress DATE: 04/21/2023 12:49 CDT INDICATION: Gestational diabetes TECHNIQUE: Real-time transabdominal obstetric ultrasound. FINDINGS: No prior studies for comparison. There is a single living fetus in vertex presentation. The placenta is posterior without placenta pr evia. cardiac activity and movement is noted with a heart rate of 130 beats per minute. Biophysical profile: breathin of 2 movement: 2 of 2 tone: 2 of 2 Amniotic flud pocket: 2 of 2 Total score: 8 of 8 IMPRESSION: 1. Single living intrauterine in vertex presentation. 2: Total biophysical profile score of 8/8. Reviewed, dictated and finalized at location B.
[2023-04-21 10:57] VITALS: BP 141/72; PULSE 107
[2023-04-21 11:22] VITALS: BP 143/75; PULSE 103
[2023-04-21 11:26] LABS: Basophils Percent Auto 0.3 % (0.2-1.2); Eosinophils Absolute Auto 0.2 K/mm3 (0-0.3); Eosinophils Percent Auto 1.3 % (0-4.4); Hematocrit 34.2 % (37.0-47.0); Immature Granulocyte Absolute 0.06 K/mm3 (0.00-0.031); Immature Granulocyte Percent A 0.5 % (0-0.5); Lymphocytes Absolute Auto 1.45 K/mm3 (0.9-3.2); Mean Corpuscular HGB Conc 32.2 g/dl (32-36); Mean Corpuscular Hemoglobin 28.4 pg (26-34); Mean Corpuscular Volume 88.4 fl (80-100); Monocytes Absolute Auto 0.8 K/mm3 (0.1-0.6); Monocytes Percent Auto 7.4 % (2.6-8.5); Neutrophils Absolute Auto 8.6 K/mm3 (1.3-6.7); Neutrophils Percent Auto 77.5 % (45.5-73.1); Platelet Count Result 268 k/mm3 (150-375); Red Blood Count 3.87 M/mm3 (4.2-5.4); Red Cell Distribution Width 15.3 % (11.5-14.5); White Blood Count 11.1 K/mm3 (4.5-10.0)
[2023-04-21 11:32] VITALS: BP 131/71; PULSE 97
[2023-04-21 11:32] LABS: Appearance Urine Clear (Clear); Bacteria Urine None Seen /hpf; Bilirubin Urine Negative (Negative); Blood Urine Negative (Negative); Color Urine Yellow (Yellow); Glucose Urine UA Negative (Negative); Ketones Urine 1+ mg/dL (Negative); Leukocyte Esterase Ur Trace LEU/UL (NEGATIVE); Nitrate Urine Negative (Negative); Non Pathogenic Casts 0-2; Protein Urine Negative (Negative); RBC Urine 0-2 /hpf (0-2); Specific Grav Ur 1.013 (1.001-1.035); Squamous Epithelial Cell Urine Few /hpf (Few); Urobilinogen Urine 0.2 mg/dL (<2.0); pH Urine 6.5 (5.0-9.0)
[2023-04-21 11:35] LABS: Add Urine Microscopic? YES
[2023-04-21 11:37] LABS: Alanine Aminotransferase 20 U/L (6-35); Albumin Level 3.1 g/dL (3.5-5.1); Alkaline Phosphatase 103 U/L (38-126); Anion Gap 7 mmol/L (8-16); Aspartate Amino Transferase 20 U/L (14-36); Bilirubin,Total 0.4 mg/dL (0.2-1.3); Blood Urea Nitrogen 8 mg/dL (7-17); Calcium 9.3 mg/dL (8.4-10.2); Carbon Dioxide 18 mmol/L (22-30); Chloride 108 mmol/L (98-107); Estimated Glomerular Filt Rate > 60; Glucose 121 mg/dL (65-110); Potassium 3.7 mmol/L (3.4-5.0); Sodium 133 mmol/L (137-145); Uric Acid 4.6 mg/dL (2.5-7.5)
[2023-04-21 11:38] LABS: Creatinine Urine 68.1 mg/dL; Total Protein Urine Random 12 mg/dL; Ur Ttl Prot Creatinine Ratio 0.18 mg/mg (0-0.20)
[2023-04-21 11:46] VITALS: BP 133/68; PULSE 98
[2023-04-21 12:01] VITALS: BP 139/70; PULSE 92
[2023-04-21 12:50] VITALS: BP 131/71; PULSE 85
== END 2023-04-21 12:53 | disposition home or self-care (01) ==
LOC: ANHOBOP 10:27 → ANHOBPP 10:28
PROVIDERS: PCP Nurse Practitioner Family; Visit Provider Obstetrics & Gynecology
DX: O13.9 Gestational [pregnancy-induced] hypertension without significant proteinuria, unspecified trimester (principal); Z3A.00 Weeks of gestation of pregnancy not specified
CPT/HCPCS: 36415; 59025; 76819; 80053; 81001; 82570; 84156; 84550; 85025; 87086; 99199

== ENCOUNTER 2023-04-23 12:25 | Observation (INO) | payer OTHER, SELFPAY ==
--- NOTE | ~2023-04-23 | US_ITS ---
EXAMINATION: US OB BPP wo non-stress DATE: 04/23/2023 16:55 CDT INDICATION: Variable decelerations in the office. TECHNIQUE: Real-time transabdominal obstetric ultrasound. FINDINGS: Comparison to 04/21/2023 There is a single living fetus with heart motions detected. Amniotic fluid is subjectively norm al. Placenta is anterior. heart motions are documented during the study examination. Biophysical profile: breathin of 2 movement: 2 of 2 tone: 2 of 2 Amniotic flud pocket: 2 of 2 Total score: 8 of 8 IMPRESSION: 1. Single living intrauterine with heart motions detected. 2: Total biophysical profile score of 8/8. Reviewed, dictated and finalized at location A.
[2023-04-23 13:00] VITALS: BMI 59.9
--- NOTE | 2023-04-23 13:15 | OBADM ---
This patient, Kylah Francisco, admitted to the OB room OB Post 117 for observation. Patient/family oriented to hospital policies and general routines including ID bracelet, bed and alarms, visiting hours, pain management, procedures, bathroom and other care routines, personal items, smoking policy, room service/diet, and visiting hours. Patient/Family are encouraged to report perceived risks to care and to ask questions if they do not understand what they are told or what they should do.
[2023-04-23 13:16] VITALS: BP 140/80; PULSE 102
[2023-04-23 13:31] VITALS: BP 144/81; PULSE 102
[2023-04-23 13:46] VITALS: BP 139/75; PULSE 102
[2023-04-23 14:36] LABS: Basophils Percent Auto 0.2 % (0.2-1.2); Eosinophils Absolute Auto 0.1 K/mm3 (0-0.3); Eosinophils Percent Auto 1.4 % (0-4.4); Hematocrit 34.9 % (37.0-47.0); Hemoglobin 11.2 g/dL (12.0-15.0); Immature Granulocyte Absolute 0.03 K/mm3 (0.00-0.031); Immature Granulocyte Percent A 0.3 % (0-0.5); Lymphocytes Absolute Auto 1.43 K/mm3 (0.9-3.2); Lymphocytes Percent Auto 14.6 % (18.3-44.2); Mean Corpuscular HGB Conc 32.1 g/dl (32-36); Mean Corpuscular Hemoglobin 28.3 pg (26-34); Mean Corpuscular Volume 88.1 fl (80-100); Mean Platelet Volume 10.4 fl (7.4-10.4); Monocytes Absolute Auto 0.8 K/mm3 (0.1-0.6); Monocytes Percent Auto 8.5 % (2.6-8.5); Neutrophils Absolute Auto 7.3 K/mm3 (1.3-6.7); Platelet Count Result 253 k/mm3 (150-375); Red Blood Count 3.96 M/mm3 (4.2-5.4); Red Cell Distribution Width 15.3 % (11.5-14.5); White Blood Count 9.8 K/mm3 (4.5-10.0)
[2023-04-23 14:37] LABS: Appearance Urine Cloudy (Clear); Bacteria Urine Rare /hpf; Bilirubin Urine Negative (Negative); Blood Urine Negative (Negative); Color Urine Yellow (Yellow); Glucose Urine UA Negative (Negative); Ketones Urine Negative (Negative); Leukocyte Esterase Ur Trace LEU/UL (NEGATIVE); Nitrate Urine Negative (Negative); Non Pathogenic Casts 0-2; Protein Urine Negative (Negative); RBC Urine 0-2 /hpf (0-2); Specific Grav Ur 1.015 (1.001-1.035); Squamous Epithelial Cell Urine Many /hpf (Few); Urobilinogen Urine 0.2 mg/dL (<2.0)
[2023-04-23 14:38] LABS: Creatinine Urine 90.6 mg/dL; Total Protein Urine Random 9 mg/dL
[2023-04-23 14:41] LABS: Add Urine Microscopic? YES
--- NOTE | 2023-04-23 14:51 | PC.NURSE ---
Dr Sutton notified of lab results, itching palms and spacing contractions. Ok to dc home with labor precautions if labs are normal.
[2023-04-23 14:52] LABS: Alanine Aminotransferase 19 U/L (6-35); Albumin Level 3.1 g/dL (3.5-5.1); Alkaline Phosphatase 99 U/L (38-126); Anion Gap 6 mmol/L (8-16); Aspartate Amino Transferase 19 U/L (14-36); Bilirubin,Total 0.4 mg/dL (0.2-1.3); Blood Urea Nitrogen 10 mg/dL (7-17); Calcium 9.2 mg/dL (8.4-10.2); Carbon Dioxide 22 mmol/L (22-30); Chloride 106 mmol/L (98-107); Estimated CRCL calculation 161 ml/min; Estimated Glomerular Filt Rate > 60; Glucose 110 mg/dL (65-110); Potassium 3.8 mmol/L (3.4-5.0); Sodium 134 mmol/L (137-145); Uric Acid 4.9 mg/dL (2.5-7.5)
--- NOTE | 2023-04-23 15:30 | PC.NURSE ---
Patient to have Bile Acids drawn at office due to better turn over time. Patient informed of need for labs after leaving the unit.
--- NOTE | 2023-05-01 07:45 | P.PNOB_ITS ---
OB - Triage/Final Diagnosis Visit Information Comments/Additional reasons for admission: I have assessed the risk for this patient, Kylah Francisco, and determined that she would benefit from observation care. Evaluation Laboratory results: Laboratory Tests 04/23/23 13:55 WBC 9.8 RBC 3.96 L Hgb 11.2 L Hct 34.9 L MCV 88.1 MCH 28.3 MCHC 32.1 RDW 15.3 H Plt Count 253 MPV 10.4 Immature Gran % (Auto) 0.3 Neut % (Auto) 75.0 H Lymph % (Auto) 14.6 L [place] % (Auto) 8.5 Eos % (Auto) 1.4 Baso % (Auto) 0.2 Lymph # (Auto) 1.43 [place] # (Auto) 0.8 H Eos # (Auto) 0.1 Baso # (Auto) 0.0 Abs Immat Gran (auto) 0.03 Absolute Neuts (auto) 7.3 H Absolute Nucleated RBC 0.0 Nucleated RBC % 0.0 Sodium 134 L Potassium 3.8 Chloride 106 Carbon Dioxide 22 Anion Gap 6 L BUN 10 Creatinine 0.60 L Estim Creat Clear Calc 161 Estimated GFR > 60 Glucose 110 Uric Acid 4.9 Calcium 9.2 Total Bilirubin 0.4 AST 19 ALT 19 Alkaline Phosphatase 99 Total Protein 7.0 Albumin 3.1 L Urine Color Yellow Urine Appearance Cloudy H Urine pH 6.0 Ur Specific [place] 1.015 Urine Protein Negative Urine Glucose (UA) Negative Urine Ketones Negative Ur Blood (Man) Negative Urine Nitrate Negative Urine Bilirubin Negative Urine Urobilinogen 0.2 Ur Leukocyte Esterase Trace H Urine RBC 0-2 Urine WBC 11-20 H Ur Squamous Epith Cells Many H Urine Bacteria Rare Urine Casts 0-2 U Random Total Protein 9 Urine Creatinine 90.6 Protein/Creat Ratio 2 0.10 Final Diagnosis (1) contractions: Code(s): O47.00 - False labor before 37 completed weeks of gestation, unspecified trimester Status: Acute
--- NOTE | 2023-05-01 07:45 | P.PNOB_ITS ---
OB - Triage/Final Diagnosis Visit Information Date of evaluation: 04/26/23 Comments/Additional reasons for admission: I have assessed the risk for this patient, Kylah Francisco, and determined that she would benefit from observation care. Evaluation Laboratory results: Laboratory Tests 04/23/23 13:55 WBC 9.8 RBC 3.96 L Hgb 11.2 L Hct 34.9 L MCV 88.1 MCH 28.3 MCHC 32.1 RDW 15.3 H Plt Count 253 MPV 10.4 Immature Gran % (Auto) 0.3 Neut % (Auto) 75.0 H Lymph % (Auto) 14.6 L [place] % (Auto) 8.5 Eos % (Auto) 1.4 Baso % (Auto) 0.2 Lymph # (Auto) 1.43 [place] # (Auto) 0.8 H Eos # (Auto) 0.1 Baso # (Auto) 0.0 Abs Immat Gran (auto) 0.03 Absolute Neuts (auto) 7.3 H Absolute Nucleated RBC 0.0 Nucleated RBC % 0.0 Sodium 134 L Potassium 3.8 Chloride 106 Carbon Dioxide 22 Anion Gap 6 L BUN 10 Creatinine 0.60 L Estim Creat Clear Calc 161 Estimated GFR > 60 Glucose 110 Uric Acid 4.9 Calcium 9.2 Total Bilirubin 0.4 AST 19 ALT 19 Alkaline Phosphatase 99 Total Protein 7.0 Albumin 3.1 L Urine Color Yellow Urine Appearance Cloudy H Urine pH 6.0 Ur Specific [place] 1.015 Urine Protein Negative Urine Glucose (UA) Negative Urine Ketones Negative Ur Blood (Man) Negative Urine Nitrate Negative Urine Bilirubin Negative Urine Urobilinogen 0.2 Ur Leukocyte Esterase Trace H Urine RBC 0-2 Urine WBC 11-20 H Ur Squamous Epith Cells Many H Urine Bacteria Rare Urine Casts 0-2 U Random Total Protein 9 Urine Creatinine 90.6 Protein/Creat Ratio 2 0.10 Final Diagnosis (1) Chronic hypertension affecting : Code(s): O10.919 - Unspecified pre-existing hypertension complicating , unspecified trimester Status: Acute (2) contractions: Code(s): O47.00 - False labor before 37 completed weeks of gestation, unspecified trimester Status: Acute
== END 2023-04-23 17:25 | disposition home or self-care (01) ==
PROVIDERS: Admitting Provider Obstetrics & Gynecology; PCP Nurse Practitioner Family; Visit Provider Obstetrics & Gynecology
DX: O47.03 False labor before 37 completed weeks of gestation, third trimester (principal); Z3A.32 32 weeks gestation of pregnancy; O10.913 Unspecified pre-existing hypertension complicating pregnancy, third trimester
CPT/HCPCS: 36415; 76819; 80053; 81001; 82570; 84156; 84550; 85025; 87086; G0378; G0379

== ENCOUNTER 2023-04-26 11:13 | Observation (INO) | payer OTHER, SELFPAY ==
[2023-04-26 11:53] VITALS: BP 141/62; PULSE 98
[2023-04-26 12:00] VITALS: BP 130/55; PULSE 109
[2023-04-26 12:13] LABS: Appearance Urine Clear (Clear); Bilirubin Urine Negative (Negative); Blood Urine Negative (Negative); Color Urine Yellow (Yellow); Glucose Urine UA Negative (Negative); Ketones Urine Negative (Negative); Leukocyte Esterase Ur Negative LEU/UL (Negative); Nitrate Urine Negative (Negative); Protein Urine Negative (Negative); Specific Grav Ur 1.011 (1.001-1.035); Urobilinogen Urine 0.2 mg/dL (<2.0); pH Urine 6.5 (5.0-9.0)
[2023-04-26 12:15] VITALS: BP 135/64; PULSE 96
[2023-04-26 12:23] LABS: Add Urine Microscopic? NO
[2023-04-26 12:30] VITALS: BP 137/57; PULSE 98
[2023-04-26 12:46] VITALS: BP 132/56; PULSE 98
--- NOTE | 2023-04-26 13:39 | OBADM ---
This patient, Kylah Francisco, admitted to the OB room OB Post 112 for observation. Patient/family oriented to hospital policies and general routines including ID bracelet, bed and alarms, visiting hours, pain management, procedures, bathroom and other care routines, personal items, smoking policy, room service/diet, and visiting hours. Patient/Family are encouraged to report perceived risks to care and to ask questions if they do not understand what they are told or what they should do.
--- NOTE | 2023-05-04 08:07 | PM.OBTRLD ---
OB - Triage/Final Diagnosis Visit Information Date of evaluation: 04/26/23 Reason for evaluation: threatened labor Comments/Additional reasons for admission: I have assessed the risk for this patient, Kylah Gilmanz, and determined that she would benefit from observation care. Evaluation Laboratory results: Laboratory Tests 04/26/23 12:00 Urine Color Yellow Urine Appearance Clear Urine pH 6.5 Ur Specific [place] 1.011 Urine Protein Negative Urine Glucose (UA) Negative Urine Ketones Negative Ur Blood (Man) Negative Urine Nitrate Negative Urine Bilirubin Negative Urine Urobilinogen 0.2 Leukocyte Esterase Rfl Negative
== END 2023-04-26 13:05 | disposition home or self-care (01) ==
PROVIDERS: Admitting Provider Obstetrics & Gynecology; PCP Nurse Practitioner Family; Visit Provider Obstetrics & Gynecology
DX: O47.03 False labor before 37 completed weeks of gestation, third trimester (principal); Z3A.33 33 weeks gestation of pregnancy
CPT/HCPCS: 81003; 84112; G0378; G0379

== ENCOUNTER 2023-05-04 12:45 | Observation (INO) | payer OTHER, SELFPAY ==
[2023-05-04] VITALS (9 sets, daily range): BP systolic 136–148; BP diastolic 57–88; PULSE 98–109
--- NOTE | ~2023-05-04 | US_ITS ---
US OB limited 05/04/2023 14:45 Indication: Evaluate cervical length Procedure: High-resolution Limited obstetrical ultrasound Comparison: No prior studies for comparison. Findings: There is a single living intrauterine in vertex presentation. Placenta is anterio r. heart rate is 135 BPM. Cervical length is 6 cm. Impression: 1: Cervical length is 6 cm. Reviewed, dictated and finalized at location L. Impression: 1: Cervical length is 6 cm.
[2023-05-04 13:32] LABS: Glucose Point of Care 96 mg/dl (65-105)
[2023-05-04] MEDS: NIFEdipine 10 MG CAPSULE PO (13:51)
[2023-05-04 14:08] LABS: Appearance Urine Clear (Clear); Bilirubin Urine Negative (Negative); Blood Urine Negative (Negative); Color Urine Yellow (Yellow); Glucose Urine UA Negative (Negative); Ketones Urine Negative (Negative); Leukocyte Esterase Ur Negative LEU/UL (Negative); Nitrate Urine Negative (Negative); Protein Urine Negative (Negative); Specific Grav Ur 1.016 (1.001-1.035); Urobilinogen Urine 0.2 mg/dL (<2.0); pH Urine 6.5 (5.0-9.0)
[2023-05-04 14:26] LABS: Add Urine Microscopic? NO
--- NOTE | 2023-05-04 15:30 | LDADM ---
This patient, Kylah Francisco, was admitted to OB Post 113 on 05/04/23 at 12:45. Plans for labor, pain management and were discussed with patient. Patient/family oriented to hospital policies and general routines including ID bracelet, bed and alarms, visiting hours, pain management, procedures, bathroom and other care routines, personal items, smoking policy, room service/diet and guest tray routines, infant security routines, and visiting hours. Patient/Family are encouraged to report perceived risks to care and to ask questions if they do not understand what they are told or what they should do. See OBIX for further documentation.
--- NOTE | 2023-05-04 15:53 | PC.NURSE ---
1500: Patient feels contractions that have been going on for a couple of days, contractions have been irregular. Dr. Vee Cardona notified of contractions. Procardia 10 ordered as well as cervical length. Procardia was given but pt vomited right after. This is the first time patient has vomited during this . Cervical length was 6 cm. OB aware. Orders to test patient for COVID and flu then discharge pt home with instructions on when to return to the hospital.
[2023-05-04 16:08] LABS: Influenza A QL RT-PCR Negative (Negative); Influenza B QL RT-PCR Negative (Negative); SARS-CoV-2 RNA PCR Negative (Negative)
--- NOTE | 2023-05-05 12:47 | P.PNOB_ITS ---
OB - Triage/Final Diagnosis Visit Information Reason for evaluation: threatened labor Comments/Additional reasons for admission: I have assessed the risk for this patient, Kylah Francisco, and determined that she would benefit from observation care. Evaluation Laboratory results: Laboratory Tests 05/04/23 05/04/23 05/04/23 13:23 13:27 15:18 POC Capillary Glucose 96 Urine Color Yellow Urine Appearance Clear Urine pH 6.5 Ur Specific [place] 1.016 Urine Protein Negative Urine Glucose (UA) Negative Urine Ketones Negative Ur Blood (Man) Negative Urine Nitrate Negative Urine Bilirubin Negative Urine Urobilinogen 0.2 Leukocyte Esterase Rfl Negative Influenza A (RT-PCR) Negative Influenza B (RT-PCR) Negative SARS-CoV-2 RNA (RT-PCR) Negative Vital signs: Vital Signs - 24 hr 05/04/23 13:14 05/04/23 13:15 05/04/23 13:30 Pulse Rate 100 103 H 98 Blood Pressure 145/86 H 146/85 H 141/74 H Blood Pressure [Right Arm] Oxygen Delivery 05/04/23 13:45 05/04/23 14:00 05/04/23 14:48 Pulse Rate 108 H 101 H 102 H Blood Pressure 136/57 L 136/71 143/88 H Blood Pressure [Right Arm] Oxygen Delivery 05/04/23 15:00 05/04/23 15:15 05/04/23 15:30 Pulse Rate 101 H 100 Blood Pressure 148/70 H 140/70 Blood Pressure [Right Arm] Oxygen Delivery Room Air 05/04/23 15:47 Pulse Rate 109 H Blood Pressure Blood Pressure [Right Arm] 143/88 H Oxygen Delivery
== END 2023-05-04 15:56 | disposition home or self-care (01) ==
PROVIDERS: Admitting Provider Obstetrics & Gynecology; PCP Nurse Practitioner Family; Visit Provider Obstetrics & Gynecology
DX: O47.9 False labor, unspecified (principal); Z20.822 Contact with and (suspected) exposure to COVID-19; O24.419 Gestational diabetes mellitus in pregnancy, unspecified control; Z3A.00 Weeks of gestation of pregnancy not specified
CPT/HCPCS: 59025; 76815; 81003; 82948; 87636; A9270; G0378; G0379

== ENCOUNTER 2023-05-07 11:37 | Observation (INO) | payer OTHER, SELFPAY ==
[2023-05-07] VITALS (15 sets, daily range): BP systolic 133–150; BP diastolic 60–97; PULSE 93–104; RESP 20; TEMP 37.2; BMI 60.9
--- NOTE | 2023-05-07 12:46 | OBADM ---
This patient, Kylah Francisco, admitted to the OB room OB Post 111 for observation. Patient/family oriented to hospital policies and general routines including ID bracelet, bed and alarms, visiting hours, pain management, procedures, bathroom and other care routines, personal items, smoking policy, room service/diet, and visiting hours. Patient/Family are encouraged to report perceived risks to care and to ask questions if they do not understand what they are told or what they should do.
[2023-05-07 12:51] LABS: Appearance Urine Clear (Clear); Bilirubin Urine Negative (Negative); Blood Urine Negative (Negative); Color Urine Yellow (Yellow); Glucose Urine UA Negative (Negative); Ketones Urine Negative (Negative); Leukocyte Esterase Ur Negative LEU/UL (Negative); Nitrate Urine Negative (Negative); Protein Urine Negative (Negative); Specific Grav Ur 1.013 (1.001-1.035); Urobilinogen Urine 0.2 mg/dL (<2.0)
[2023-05-07 12:54] LABS: Add Urine Microscopic? NO
[2023-05-07 13:10] LABS: Basophils Percent Auto 0.2 % (0.2-1.2); Eosinophils Absolute Auto 0.1 K/mm3 (0-0.3); Eosinophils Percent Auto 1.3 % (0-4.4); Hematocrit 36.4 % (37.0-47.0); Hemoglobin 11.4 g/dL (12.0-15.0); Immature Granulocyte Absolute 0.03 K/mm3 (0.00-0.031); Immature Granulocyte Percent A 0.3 % (0-0.5); Lymphocytes Absolute Auto 1.29 K/mm3 (0.9-3.2); Lymphocytes Percent Auto 13.2 % (18.3-44.2); Mean Corpuscular HGB Conc 31.3 g/dl (32-36); Mean Corpuscular Hemoglobin 27.8 pg (26-34); Mean Corpuscular Volume 88.8 fl (80-100); Mean Platelet Volume 10.5 fl (7.4-10.4); Monocytes Absolute Auto 0.8 K/mm3 (0.1-0.6); Monocytes Percent Auto 7.7 % (2.6-8.5); Neutrophils Absolute Auto 7.6 K/mm3 (1.3-6.7); Neutrophils Percent Auto 77.3 % (45.5-73.1); Platelet Count Result 272 k/mm3 (150-375); Red Cell Distribution Width 15.9 % (11.5-14.5); White Blood Count 9.8 K/mm3 (4.5-10.0)
[2023-05-07 13:20] LABS: Alanine Aminotransferase 15 U/L (6-35); Albumin Level 3.3 g/dL (3.5-5.1); Alkaline Phosphatase 123 U/L (38-126); Anion Gap 7 mmol/L (8-16); Aspartate Amino Transferase 18 U/L (14-36); Bilirubin,Total 0.4 mg/dL (0.2-1.3); Blood Urea Nitrogen 8 mg/dL (7-17); Calcium 9.7 mg/dL (8.4-10.2); Carbon Dioxide 21 mmol/L (22-30); Chloride 105 mmol/L (98-107); Estimated Glomerular Filt Rate > 60; Glucose 76 mg/dL (65-110); Potassium 4.4 mmol/L (3.4-5.0); Sodium 133 mmol/L (137-145); Uric Acid 5.6 mg/dL (2.5-7.5)
[2023-05-07 13:24] LABS: Creatinine Urine 31.8 mg/dL; Total Protein Urine Random 10 mg/dL; Ur Ttl Prot Creatinine Ratio 0.31 mg/mg (0-0.20)
[2023-05-07] MEDS: LACTATED RINGERS 1,000 ML 999 ML IV CONT (13:50)
[2023-05-07] MEDS: ACETAMINOPHEN 500 MG TABLET 1000 MG PO (14:17)
--- NOTE | 2023-05-17 08:52 | PM.OBTRLD ---
OB - Triage/Final Diagnosis Visit Information Comments/Additional reasons for admission: I have assessed the risk for this patient, Kylah Francisco, and determined that she would benefit from observation care. Evaluation Laboratory results: Laboratory Tests 05/07/23 05/07/23 12:43 13:06 WBC 9.8 RBC 4.10 L Hgb 11.4 L Hct 36.4 L MCV 88.8 MCH 27.8 MCHC 31.3 L RDW 15.9 H Plt Count 272 MPV 10.5 H Immature Gran % (Auto) 0.3 Neut % (Auto) 77.3 H Lymph % (Auto) 13.2 L [place] % (Auto) 7.7 Eos % (Auto) 1.3 Baso % (Auto) 0.2 Lymph # (Auto) 1.29 [place] # (Auto) 0.8 H Eos # (Auto) 0.1 Baso # (Auto) 0.0 Abs Immat Gran (auto) 0.03 Absolute Neuts (auto) 7.6 H Absolute Nucleated RBC 0.0 Nucleated RBC % 0.0 Sodium 133 L Potassium 4.4 Chloride 105 Carbon Dioxide 21 L Anion Gap 7 L BUN 8 Creatinine 0.60 L Estim Creat Clear Calc Not Reportable Estimated GFR > 60 Glucose 76 Uric Acid 5.6 Calcium 9.7 Total Bilirubin 0.4 AST 18 ALT 15 Alkaline Phosphatase 123 Total Protein 7.0 Albumin 3.3 L Urine Color Yellow Urine Appearance Clear Urine pH 7.0 Ur Specific [place] 1.013 Urine Protein Negative Urine Glucose (UA) Negative Urine Ketones Negative Ur Blood (Man) Negative Urine Nitrate Negative Urine Bilirubin Negative Urine Urobilinogen 0.2 Leukocyte Esterase Rfl Negative U Random Total Protein 10 Urine Creatinine 31.8 Protein/Creat Ratio 2 0.31 H Final Diagnosis (1) contractions: Code(s): O47.00 - False labor before 37 completed weeks of gestation, unspecified trimester Status: Acute
== END 2023-05-07 15:55 | disposition home or self-care (01) ==
PROVIDERS: Admitting Provider Obstetrics & Gynecology; PCP Nurse Practitioner Family; Visit Provider Obstetrics & Gynecology
DX: O47.03 False labor before 37 completed weeks of gestation, third trimester (principal); Z3A.34 34 weeks gestation of pregnancy
CPT/HCPCS: 36415; 80053; 81003; 82570; 84156; 84550; 85025; 96360; A9270; G0378; G0379; J7120

== ENCOUNTER 2023-05-08 20:45 | Observation (INO) | payer OTHER, SELFPAY ==
--- NOTE | 2023-05-08 20:45 | PC.NURSE ---
Patient arrived to OB unit with complaint of contractions and increased discharge. Patient was evaluated in OB unit yesterday, 05/07/2023, for contractions and discharged home. Patient states she is feeling an increase in pelvic pressure and started experiencing and increase in discharge this evening. Patient reports active movement.
[2023-05-08 21:09] VITALS: RESP 16; TEMP 36.7
[2023-05-08 21:36] LABS: Appearance Urine Clear (Clear); Bilirubin Urine Negative (Negative); Blood Urine Negative (Negative); Color Urine Yellow (Yellow); Glucose Urine UA Negative (Negative); Ketones Urine Negative (Negative); Leukocyte Esterase Ur Negative LEU/UL (Negative); Nitrate Urine Negative (Negative); Protein Urine Negative (Negative); Specific Grav Ur 1.007 (1.001-1.035); Urobilinogen Urine 0.2 mg/dL (<2.0)
[2023-05-08 21:37] LABS: Add Urine Microscopic? NO
--- NOTE | 2023-05-08 21:38 | PC.NURSE ---
Dr. Del Cid notified of patient arrival to OB unit with complaint of contractions, increased discharge and pelvic pressure. SVE unchanged from exam yesterday 05/07/2023. VSS. Patient ashley regularly with soft abdomen between contractions and mild intensity. ROM plus negative from amniotic fluid. Orders received. FHT appropriate for gestational age.
--- NOTE | 2023-05-08 21:42 | PC.NURSE ---
Clarified celestone order with Dr. Del Cid r/t patient history of diabetes. Order to proceed with celestone dose with repeated dose at 24 hours.
[2023-05-08] MEDS: BETAMETHASONE SOD PHOS/ACETATE 30 MG/5 ML VIAL 12 MG IM (21:58)
--- NOTE | 2023-05-08 22:07 | PC.NURSE ---
Notified Dr. Del Cid of patient refusal of terbutaline medication. Order for 10mg of procardia PO received.
[2023-05-08] MEDS: NIFEdipine 10 MG CAPSULE PO (22:24)
[2023-05-08 22:27] VITALS: BP 138/52; PULSE 106
--- NOTE | 2023-05-08 23:03 | PC.NURSE ---
Discharge instructions reviewed with patient. labor precautions reviewed and educational handout provided to patient. Patient states understanding of education and denies questions. Patient instructed to pick up operator procardia prescription at pharmacy and take as prescribed. Patient also instructed to return to OB unit for 2nd dose of celestone tomorrow (05/09/2023) at 2200. Patient states understanding of instructions. Patient instructed to follow-up with Dr. Del Cid this week. Patient left ambulating OB unit without complaints of pain or contractions at 2305.
--- NOTE | 2023-05-30 21:33 | PM.OBTRLD ---
OB - Triage/Final Diagnosis Visit Information Comments/Additional reasons for admission: I have assessed the risk for this patient, Kylah Francisco, and determined that she would benefit from observation care. Evaluation Laboratory results: Laboratory Tests 05/08/23 21:28 Urine Color Yellow Urine Appearance Clear Urine pH 7.0 Ur Specific [place] 1.007 Urine Protein Negative Urine Glucose (UA) Negative Urine Ketones Negative Ur Blood (Man) Negative Urine Nitrate Negative Urine Bilirubin Negative Urine Urobilinogen 0.2 Leukocyte Esterase Rfl Negative Final Diagnosis (1) contractions: Code(s): O47.00 - False labor before 37 completed weeks of gestation, unspecified trimester Status: Acute
--- NOTE | 2023-05-30 21:41 | PM.OBTRLD ---
OB - Triage/Final Diagnosis Visit Information Comments/Additional reasons for admission: I have assessed the risk for this patient, Kylah Francisco, and determined that she would benefit from observation care. Evaluation Laboratory results: Laboratory Tests 05/08/23 21:28 Urine Color Yellow Urine Appearance Clear Urine pH 7.0 Ur Specific [place] 1.007 Urine Protein Negative Urine Glucose (UA) Negative Urine Ketones Negative Ur Blood (Man) Negative Urine Nitrate Negative Urine Bilirubin Negative Urine Urobilinogen 0.2 Leukocyte Esterase Rfl Negative Final Diagnosis (1) contractions: Code(s): O47.00 - False labor before 37 completed weeks of gestation, unspecified trimester Status: Acute
== END 2023-05-08 23:05 | disposition home or self-care (01) ==
PROVIDERS: Admitting Provider Obstetrics & Gynecology; PCP Nurse Practitioner Family; Visit Provider Obstetrics & Gynecology
DX: O47.03 False labor before 37 completed weeks of gestation, third trimester (principal); Z3A.34 34 weeks gestation of pregnancy
CPT/HCPCS: 59025; 81003; 84112; 96372; A9270; G0378; G0379; J0702

== ENCOUNTER 2023-05-10 10:40 | Observation (INO) | payer OTHER, SELFPAY ==
[2023-05-10] VITALS (9 sets, daily range): BP systolic 126–146; BP diastolic 51–74; PULSE 95–104; BMI 60.9
--- NOTE | 2023-05-10 13:27 | PC.NURSE ---
Patient not wanting to take Procardia, states that her social service technician doesn't want her to take it. Willing to take RX home and take it after talking to her social service technician.
--- NOTE | 2023-05-31 12:17 | PM.OBTRLD ---
OB - Triage/Final Diagnosis Visit Information Comments/Additional reasons for admission: I have assessed the risk for this patient, Kylah Francisco, and determined that she would benefit from observation care. Final Diagnosis (1) contractions: Code(s): O47.00 - False labor before 37 completed weeks of gestation, unspecified trimester Status: Acute
== END 2023-05-10 13:47 | disposition home or self-care (01) ==
PROVIDERS: Admitting Provider Obstetrics & Gynecology; PCP Nurse Practitioner Family; Visit Provider Obstetrics & Gynecology
DX: O47.03 False labor before 37 completed weeks of gestation, third trimester (principal); Z3A.35 35 weeks gestation of pregnancy
CPT/HCPCS: G0378; G0379

== ENCOUNTER 2023-05-14 09:28 | Observation (INO) | payer OTHER, SELFPAY ==
--- NOTE | ~2023-05-14 | US_ITS ---
EXAMINATION: US OB BPP wo non-stress DATE: 05/14/2023 11:19 INDICATION: Decelerations. Third trimester. TECHNIQUE: Real-time pelvic ultrasound was performed. COMPARISON: Ultrasound 05/04/2023 FINDINGS: There is a single living fetus in vertex presentation. The placenta is anterior. heart rate is 142 beats per minute (bpm). The amniotic fluid index is 11.0 cm, which is normal. Biophysical profile performed by the technologist: breathing (30 sec sustained breathing in 30 minutes): 2 out of 2 movement (3 gross body movements in 30 minutes): 2 out of 2 tone (one episode of [id number]-[id number] limb movement): 2 out of 2 Amniotic fluid pocket (2 cm): 2 out of 2 Total score: 8 out of 8 IMPRESSION: 1. Single living fetus in vertex presentation. 2. Biophysical profile 8 out of 8. Reviewed, dictated and finalized at location E.
--- NOTE | 2023-05-14 09:28 | OBADM ---
This patient, Kylah Francisco, admitted to the OB room Labor/Delivery/Recovery 120 for observation. Patient/family oriented to hospital policies and general routines including ID bracelet, bed and alarms, visiting hours, pain management, procedures, bathroom and other care routines, personal items, smoking policy, room service/diet, and visiting hours. Patient/Family are encouraged to report perceived risks to care and to ask questions if they do not understand what they are told or what they should do.
[2023-05-14 09:35] VITALS: BMI 60.9
[2023-05-14 10:01] VITALS: BP 139/72; PULSE 91
[2023-05-14 10:16] VITALS: BP 129/60; PULSE 90
[2023-05-14 10:22] LABS: Glucose Point of Care 111 mg/dl (65-105)
[2023-05-14 10:31] VITALS: BP 120/67; PULSE 89
[2023-05-14 10:46] VITALS: BP 130/72; PULSE 94
[2023-05-14 11:18] VITALS: BP 139/72; PULSE 91
--- NOTE | 2023-05-17 18:26 | PM.OBTRLD ---
OB - Triage/Final Diagnosis Visit Information Date of evaluation: 05/14/23 Reason for evaluation: threatened labor Comments/Additional reasons for admission: I have assessed the risk for this patient, Kylah Herrera Nolan, and determined that she would benefit from observation care. Evaluation Laboratory results: Laboratory Tests 05/14/23 10:18 POC Capillary Glucose 111 H
== END 2023-05-14 11:32 | disposition home or self-care (01) ==
PROVIDERS: Admitting Provider Obstetrics & Gynecology; PCP Nurse Practitioner Family; Visit Provider Obstetrics & Gynecology
DX: O47.03 False labor before 37 completed weeks of gestation, third trimester (principal); O24.419 Gestational diabetes mellitus in pregnancy, unspecified control; Z3A.35 35 weeks gestation of pregnancy
CPT/HCPCS: 59025; 76819; 82948; G0378; G0379

== ENCOUNTER 2023-05-24 05:40 | Inpatient (IN) | payer OTHER, SELFPAY ==
[2023-05-24] VITALS (17 sets, daily range): BP systolic 130–166; BP diastolic 56–87; PULSE 88–110; RESP 14–20; TEMP 36.3–37.2; O2SAT 96–99; BMI 59.4
[2023-05-24 06:26] LABS: Glucose Point of Care 103 mg/dl (65-105)
[2023-05-24 06:27] LABS: Hematocrit 38.4 % (37.0-47.0); Hemoglobin 12.1 g/dL (12.0-15.0); Mean Corpuscular HGB Conc 31.5 g/dl (32-36); Mean Corpuscular Hemoglobin 27.6 pg (26-34); Mean Corpuscular Volume 87.5 fl (80-100); Mean Platelet Volume 10.5 fl (7.4-10.4); Platelet Count Result 293 k/mm3 (150-375); Red Blood Count 4.39 M/mm3 (4.2-5.4); Red Cell Distribution Width 15.9 % (11.5-14.5); White Blood Count 10.3 K/mm3 (4.5-10.0)
[2023-05-24] MEDS: LACTATED RINGERS 1,000 ML 125 ML IV CONT (06:32)
--- NOTE | 2023-05-24 06:40 | LDADM ---
This patient, Kylah Francisco, was admitted to Labor/Delivery/Recovery 120 on 05/24/23 at 05:40. Plans for labor, pain management and were discussed with patient. Patient/family oriented to hospital policies and general routines including ID bracelet, bed and alarms, visiting hours, pain management, procedures, bathroom and other care routines, personal items, smoking policy, room service/diet and guest tray routines, security routines, and visiting hours. Patient/Family are encouraged to report perceived risks to care and to ask questions if they do not understand what they are told or what they should do. See OBIX for further documentation.
[2023-05-24 06:43] LABS: Alanine Aminotransferase 16 U/L (6-35); Albumin Level 3.4 g/dL (3.5-5.1); Alkaline Phosphatase 147 U/L (38-126); Anion Gap 12 mmol/L (8-16); Aspartate Amino Transferase 19 U/L (14-36); Bilirubin,Total 0.4 mg/dL (0.2-1.3); Blood Urea Nitrogen 12 mg/dL (7-17); Calcium 9.8 mg/dL (8.4-10.2); Carbon Dioxide 17 mmol/L (22-30); Chloride 107 mmol/L (98-107); Estimated CRCL calculation 166 ml/min; Estimated Glomerular Filt Rate > 60; Glucose 106 mg/dL (65-110); Potassium 4.1 mmol/L (3.4-5.0); Sodium 136 mmol/L (137-145)
--- NOTE | 2023-05-24 06:56 | WPDANESEPPF ---
Anes - Initial Pre Proc Eval Procedure: Operation Date: 05/24/23 07:30 Proposed Procedures p Repeat Section - Ainsley Del Cid MD Date/Time: 05/24/23 06:56 Surgeon: Ainsley Del Cid MD Pre Op Diagnosis: Sched. C/S Patient Data Age: 38 Gender: F Height: 1.63 m Weight: 157 kg Last Vital Signs Pulse 106 H 05/24/23 06:45 BP 137/86 05/24/23 06:45 Allergies Allergy/AdvReac Type Severity Reaction Status Date / Time desloratadine Allergy Severe Anaphylaxis Verified 05/15/23 13:24 amoxicillin AdvReac Mild Gastrointestinal Verified 05/15/23 13:24 Upset clavulanic acid AdvReac Mild Gastrointestinal Verified 05/15/23 13:24 Upset ketorolac AdvReac Mild Hives Verified 05/15/23 13:24 Home Medications Medication Instructions Recorded Confirmed Type hydrochlorothiazide 25 mg tablet 25 mg PO DAILY 09/20/20 05/15/23 History vit no.95-ferrous 1 tablet PO DAILY 02/12/23 05/15/23 History fumarate 28 mg-folic acid 800 mcg tablet () insulin NPH isoph U-100 human 100 56 unit subcut DAILY 04/26/23 05/15/23 History unit/mL (3 mL) subcutaneous pen (Humulin N NPH U-100 Insulin KwikPen) insulin NPH isoph U-100 human 100 84 unit subcut HS 04/26/23 05/15/23 History unit/mL (3 mL) subcutaneous pen (Humulin N NPH U-100 Insulin KwikPen) insulin lispro 100 unit/mL See Rx Instructions .Route .COMPLEX 04/26/23 05/15/23 History subcutaneous pen Laboratory Tests 05/24/23 05/24/23 05/24/23 06:08 06:09 06:20 WBC 10.3 H K/mm3 (4.5-10.0) RBC 4.39 M/mm3 (4.2-5.4) Hgb 12.1 g/dL (12.0-15.0) Hct 38.4 % (37.0-47.0) MCV 87.5 fl (80-100) MCH 27.6 pg (26-34) MCHC 31.5 L g/dl (32-36) RDW 15.9 H % (11.5-14.5) Plt Count 293 k/mm3 (150-375) MPV 10.5 H fl (7.4-10.4) Sodium 136 L mmol/L (137-145) Potassium 4.1 mmol/L (3.4-5.0) Chloride 107 mmol/L (98-107) Carbon Dioxide 17 L mmol/L (22-30) Anion Gap 12 mmol/L (8-16) BUN 12 mg/dL (7-17) Creatinine 0.60 L mg/dL (0.7-1.0) Estim Creat Clear Calc 166 ml/min Estimated GFR > 60 (59 - ) Glucose 106 mg/dL (65-110) POC Capillary Glucose 103 mg/dl (65-105) Calcium 9.8 mg/dL (8.4-10.2) Total Bilirubin 0.4 mg/dL (0.2-1.3) AST 19 U/L (14-36) ALT 16 U/L (6-35) Alkaline Phosphatase 147 H U/L (38-126) Total Protein 7.0 g/dL (6.3-8.2) Albumin 3.4 L g/dL (3.5-5.1) RPR Pending Blood Type Pending Antibody Screen Pending Patient hx anesthesia problems: none Family hx anesthesia problems: none Results Review: All pre-operative results and documents have been reviewed as part of the pre-operative evaluation. [facility] Past Medical History Medical History (Updated 05/24/23 @ 06:57 by Jensen Castrejon MD) Diabetes in HTN (hypertension) Morbid obesity Polycystic ovarian syndrome Surgical History Surgical History (Updated 05/24/23 @ 06:57 by Jensen Castrejon MD) History of section Family History Family History (Updated 05/15/23 @ 13:26 by Sharon Wilson RN) Mother No problems noted. Grandparent Hypertension Congestive heart failure Diabetes mellitus Legal Guardian No problems noted. Social History Social History Smoking status: Never smoker Alcohol intake: current Substance use: never Spiritual care concerns: No Anes - Eval Final PreProcedure Day of Procedure 05/24/23 06:56 Patient weight: super morbidly obese Heart: regular rate and rhythm Lungs: clear to auscultation Airway: Mallampati scale class III Neurological: alert and oriented Last or
--- NOTE | 2023-05-24 07:52 | PM.IMHP ---
H&P: HPI History of Present Illness Date/Time: 05/24/23 07:52 Chief Complaint: Term Narrative: at 38-year-old female at term with previous . We have agreed to repeat delivery. She understands there is risk. She understands that injuries may occur that result in hospitalization, more surgery, and severe illness. She stands risk of hemorrhage and infection. She denies any nausea, vomiting, fever, chills. She denies any chest pain or shortness of breath. Review of Systems Review of Systems: All systems reviewed & are unremarkable except as noted in HPI and below Constitutional: Constitutional: Denies chills, Denies fatigue, Denies fever(s) and Denies weakness Eyes: Eyes: Denies blurry vision, Denies change in vision, Denies loss of peripheral vision, Denies loss of vision, Denies other visual disturbances and Denies eye pain ENT: Denies vertigo, Denies dizziness, Denies hearing loss, Denies mouth pain, Denies nasal obstruction, Denies neck mass and Denies neck pain Cardiovascular: Cardiovascular: Denies chest pain, Denies diaphoresis, Denies syncope, Denies leg edema and Denies dyspnea Respiratory: Respiratory: Denies chest congestion, Denies cough, Denies hemoptysis, Denies dyspnea and Denies wheezing Gastrointestinal: Gastrointestinal: Denies abdominal pain, Denies constipation, Denies diarrhea, Denies nausea and Denies vomiting Genitourinary: Genitourinary: Denies hematuria, Denies change in libido, Denies nocturia, Denies genital lesions, Denies flank pain and Denies urinary urgency Musculoskeletal: Musculoskeletal: Denies abnormal gait, Denies back pain, Denies myalgias, Denies arthralgias, Denies joint swelling, Denies muscle weakness and Denies neck pain Integumentary/Breasts: Skin/Breast: Denies swelling, Denies breast pain, Denies breast mass, Denies dry skin, Denies nipple discharge, Denies unusual bruising and Denies jaundice Neurologic: Denies Neuro-related abnormal movements, Denies Abnormal speech present, Denies abnormal gait, Denies behavioral changes, Denies confusion, Denies vertigo, Denies dizziness, Denies syncope, Denies loss of vision, Denies memory loss, Denies convulsions and Denies weakness Psychiatric: Psychiatric: Denies abnormal sleep pattern, Denies behavioral changes, Denies change in libido, Denies confusion, Denies depression, Denies anhedonia and Denies memory loss Endocrine: Endocrine: Reports no additional endocrine complaints, Denies change in libido and Denies fatigue Hematologic/Lymphatic: Hematologic/Lymphatic: Reports no additional hematologic/lymphatic complaints Allergic/Immunologic: Allergic/Immunologic: Reports no additional allergic/immunologic complaints and Denies wheezing PMFSH Past Medical History Medical History (Updated 05/24/23 @ 07:55 by Ainsley Del Cid MD) Diabetes in HTN (hypertension) Morbid obesity Polycystic ovarian syndrome Surgical History Surgical History (Updated 05/24/23 @ 07:55 by Ainsley Del Cid MD) History of section Family History Family History (Updated 05/15/23 @ 13:26 by Sharon Wilson RN) Mother No problems noted. Grandparent Hypertension Congestive heart failure Diabetes mellitus Legal Guardian No problems noted. Social History Social History Smoking status: Never smoker Alcohol intake: current Substance use: never Lack of Transportation: No Lack of Food: Never True Current Housing: I Have Housing Concerned About Future Housing: No Difficulty Paying Gas/Electric Bills: No Difficulty Paying for Meds: No Currently Unemployed: No Education: Trade/Vocational Certificate Difficulty w/ Childcare or Family Care: No Spiritual care concerns: No Meds Home Medications and Allergies Home Medications Medication Instructions Recorded Confirmed Type hydrochlorothiazide 25 mg tablet 25
--- NOTE | 2023-05-24 07:57 | WPDHPUPDATE1 ---
History and Physical Update Update Date/Time: 05/24/23 07:57 History and Physical has been reviewed, including an updated exam of the patient. There are NO changes in the patient's condition. Risks, benefits, and alternatives have been discussed and questions answered. Patient agrees to proceed with procedure.
[2023-05-24] MEDS: LACTATED RINGERS 1,000 ML 30 ML IV CONT (10:48)
--- NOTE | 2023-05-24 10:48 | W.PM.PROC2 ---
Procedure Note - Detailed Date of Procedure 05/24/23 Pre-op Diagnosis previous , female sterilization Post-op Diagnosis Same (Intraoperative vascular injury resulting in hemorrhage and hysterectomy) Procedure Performed hysterectomy Surgeon Ainsley Del Cid MD Anesthesia Spinal Indications previous , female sterilization, intraoperative hemorrhage Findings Normal gestational maternal anatomy, average size , normal Apgars. Description of Procedure The patient was taken the operating room. She was prepped and draped in dorsal supine position with a leftward tilt. This was done after spinal anesthetic was applied. A low-transverse skin incision was made and carried down till of the fascia with the knife. The fascial incision was made with the knife. The fascial incision was extended laterally with Grande scissors. The fascia was tented upward superiorly and inferiorly the rectus muscles were dissected off bluntly. The rectus muscles were the midline. The preperitoneal fat and peritoneum were dissected open bluntly at the superior aspect of the rectus muscles. The peritoneal incision was extended superior and inferior with good position of bladder. The uterine incision was made with a scalpel down to the level of the amniotic cavity. The amniotic cavity was entered bluntly. The was delivered. The cord was clamped and cut and the was handed off to waiting pediatric staff. Cord bloods were obtained. The placenta was removed manually. The uterus was exteriorized. The uterus was cleared of all clots, debris and membranes. The uterus was closed in 0 Vicryl running lock fashion. An imbricating over a was placed along the incision line as well. Each fallopian tube was grasped and raised with a Neisha. With from the underlying venous structures. while trying to separate the right tube from the adjacent vein which it was closely associated with a tear was made in the large vein. Measures to contain bleeding from the vein included sutures uterine artery and ovarian artery occlusion /ligation. Administration of TXA. There was very good uterine tone and uterotonics would not result in improved hemostasis. Large sutures encompassing the lateral right 3rd of the uterus were placed with the B Montiel suture. A B Montiel stitch itself would not result in more hemostasis given it was not a tone issues. After working on the bleeding for more than 45 minutes to an hour and hysterectomy was performed. The bilateral suspensory ligament the ovaries clamped cut and suture ligated bilaterally. The round ligament and fallopian tube were clamped transected and ligated bilaterally. This was all with 0 Vicryl. The broad ligaments were clamped transected and cut along the lateral aspect of the uterus down the level of the vagina. The cardinal ligaments and uterine arteries were clamped transected and suture ligated along the lateral aspect of cervix. The cervix was then transected. An imbricating Running suture of the cut surface of the cervix was placed. hemostasis was achieved with focal cautery and the pelvis was irrigated. The right ovary was pexed using a 3-0 Vicryl. Two [id number] sutures. The fascia was closed with 0 Vicryl running fashion. The subcutaneous tissue was irrigated pinpoint bleeders were cauterized. The skin was closed with subcuticular absorbable nathan. The skin incision line was covered with glue. The patient tolerated the procedure well. She has taken recovery room in stable condition. Sponge lap and needle counts were correct x2. Estimated Blood Loss 1,100 Complications Other complications ( Intraoperative vascular iatrogenic Injury that resulted in hysterectomy.) Condition Stable Disposition PACU
[2023-05-24 10:57] LABS: Glucose Point of Care 93 mg/dl (65-105)
[2023-05-24] MEDS: fentaNYL CITRATE INJ (*CRX) 100 MCG/2 ML VIAL 25 MCG IV PUSH ×4 (11:57→12:41)
--- NOTE | 2023-05-24 13:23 | PC.NURSE ---
Patient transferred to post room #291 via stretcher. Support person present. Oriented to unit, room, information board, rooming in, admission packet and security measures. Patient verbalizes understanding.
[2023-05-24 13:35] LABS: Rapid Plasma Reagin Non-Reactive (NonReactive)
[2023-05-24] MEDS: DEXTROSE 5%/0.45% SOD CHL 1,000 ML 125 ML IV CONT (13:47)
[2023-05-24] MEDS: IBUPROFEN 600 MG TABLET PO ×2 (13:53→21:09)
[2023-05-24] MEDS: HYDROcodone/acetaminophen (*CRX) 5-325 MG TABLET 1 TAB PO ×2 (13:53→21:10)
--- NOTE | 2023-05-24 14:21 | PC.NURSE ---
[id number] Introductions were made, then consulted with patient to assess needs related to . Mother led the conversation with her?plans to feed?her infant and the?experience so far. Mother works well with her with encouragement and education. Encouraged understanding of the benefits of skin to skin (demonstrating unwrapping and placing upright on her chest), stimulating with massage touch, changing positions to encourage wakefulness, how to watch for early feeding cues, responsive feeding, feeding on demand (aiming for 8-12 times in 24 hours, about every 2-3 hours), milk production, hand expression, building/maintaining a milk supply, duration of feeding, signs of adequate intake/output and how to record on the feeding sheet. Mother states she is concerned that her infant will get accustomed to bottle feeding. Patient educated verbally and demonstration of how to pace bottle feed as an option to slow the flow and hopefully assist with bringing infant to the breast. Mother voiced understanding of the information. Resources provided for inpatient/outpatient with feeding sheet, name written on the communication board and the mom/baby guide. [id number] Labor RN states mother is pumping and would like syringes to feed her . Mother has 14mls pumped and states she is about to offer breast to latch her infant that was born at 34 3/7th weeks old. RN had mother stop pumping to latch to the breast. Reviewed positioning and ear, shoulder, hip alignment, supporting the breast to facilitate a deep latch, asymmetrical latch (off-center), leading with the chin with a big, open, wide gape and body close to mother. Infant latched optimally to the right, then the left breast in football position. There were several attempt as infant latched to mother and suckled at times as if mother's breast was a bottle. After infant latched effectively, then education given to mother of how to visualize suck/swallow ratios and listen for drinking at the breast. Infant was able to maintain latch without discomfort to mother. Educated mother in the visible difference of non-nutritive versus nutritive . Nipple care reviewed with optimal latch, good positioning, good handwashing when or touching the breast/nipples to prevent infection. Resources used to facilitate learning were used with the visual handouts, tool, mom and baby guide. Mother voiced understanding of skin to skin, stimulating with massage touch, responsive feedings, hand expressed colostrum, talking to infant to encourage if it has been 2 -2.5 hours since the start of the last , to call if infant does not latch, or if there is discomfort with . Reviewed with mother the importance of practicing to build the milk supply, the skill set with and building strength with in . Resources provided for inpatient/outpatient with feeding sheet, name written on the communication board and the mom/baby guide. Mother voiced understanding of information, demonstrated learning and will call if there is a request for assistance. Reported to the Primary RN and discussed if there is a possibility that the breastmilk can be fortified rather than using formula. Primary RN will work with mother on a plan to formula feed her until she is able to pump more volume, then add fortifier. RN plans to call the [facility] Director for guidance and orders, then will discuss with mother.
[2023-05-25 03:05] VITALS: BP 160/81; PULSE 91; RESP 20; TEMP 36.3
[2023-05-25] MEDS: IBUPROFEN 600 MG TABLET PO ×3 (05:38→17:55)
[2023-05-25] MEDS: HYDROcodone/acetaminophen (*CRX) 5-325 MG TABLET 1 TAB PO ×2 (05:39→11:09)
[2023-05-25 05:43] LABS: Basophils Percent Auto 0.3 % (0.2-1.2); Eosinophils Absolute Auto 0.1 K/mm3 (0-0.3); Eosinophils Percent Auto 0.7 % (0-4.4); Hematocrit 33.5 % (37.0-47.0); Hemoglobin 10.3 g/dL (12.0-15.0); Immature Granulocyte Absolute 0.05 K/mm3 (0.00-0.031); Immature Granulocyte Percent A 0.5 % (0-0.5); Lymphocytes Absolute Auto 1.29 K/mm3 (0.9-3.2); Lymphocytes Percent Auto 13.1 % (18.3-44.2); Mean Corpuscular HGB Conc 30.7 g/dl (32-36); Mean Corpuscular Hemoglobin 27.8 pg (26-34); Mean Corpuscular Volume 90.3 fl (80-100); Mean Platelet Volume 9.7 fl (7.4-10.4); Monocytes Absolute Auto 0.8 K/mm3 (0.1-0.6); Monocytes Percent Auto 7.7 % (2.6-8.5); Neutrophils Absolute Auto 7.7 K/mm3 (1.3-6.7); Neutrophils Percent Auto 77.7 % (45.5-73.1); Platelet Count Result 244 k/mm3 (150-375); Red Blood Count 3.71 M/mm3 (4.2-5.4); Red Cell Distribution Width 16.2 % (11.5-14.5); White Blood Count 9.9 K/mm3 (4.5-10.0)
[2023-05-25 07:35] VITALS: BP 149/92; PULSE 94; RESP 18; TEMP 36.9; O2SAT 98
--- NOTE | 2023-05-25 12:28 | P.PNOB_ITS ---
OB - PN: Subj Subjective Date/time seen: 05/25/23 08:15 Interval history: POD#1 s/p c hyst Doing well, pain well controlled Baby transferred for O2 requirement, would like pass to visit today Normal bladder function, no flatus Minimal bleeding OB - PN: Obj Data Labs 05/25/23 05:31 05/24/23 06:09 Labs: Laboratory Results - last 24 hr 05/24/23 05/25/23 06:08 05:31 WBC 9.9 RBC 3.71 L Hgb 10.3 L Hct 33.5 L MCV 90.3 MCH 27.8 MCHC 30.7 L RDW 16.2 H Plt Count 244 MPV 9.7 Immature Gran % (Auto) 0.5 Neut % (Auto) 77.7 H Lymph % (Auto) 13.1 L [place] % (Auto) 7.7 Eos % (Auto) 0.7 Baso % (Auto) 0.3 Lymph # (Auto) 1.29 [place] # (Auto) 0.8 H Eos # (Auto) 0.1 Baso # (Auto) 0.0 Abs Immat Gran (auto) 0.05 H Absolute Neuts (auto) 7.7 H Absolute Nucleated RBC 0.0 Nucleated RBC % 0.0 RPR Non-reactive OB - PN A/P Assessment and Plan (1) Chronic hypertension affecting : Code(s): O10.919 - Unspecified pre-existing hypertension complicating , unspecified trimester Status: Acute Assessment and Plan: Continue to monitor BP closely; hx of PP preeclampsia with prior delivery Plan day: 1 Plan: routine care Comments: s/p c hyst Time Spent With Patient Time: Total time spent is greater than 50% in coordination of care (as documented) at patient's floor/unit and/or counseling patient: Review of Systems 2 Review of Systems: All systems reviewed & are unremarkable except as noted in HPI and below Exam Const: General: comfortable, no acute distress, alert and awake Resp: Effort & Inspection: normal respiratory effort GI: GI Palp: Yes Soft to palpation Other: incision c/d/i
--- NOTE | 2023-05-25 13:00 | PC.NURSE ---
1300 RN took pt out to the car via wheelchair to leave on her therapeutic pass to see her baby at [facility], she is to return by 1900 tonight. Pt signed the pass and it is on the front of her chart.
--- NOTE | 2023-05-25 17:50 | PC.NURSE ---
1750 Patient returned from [facility], pain medications to be given and patient requested to take a shower. Vitals to be done after patient is back in bed.
[2023-05-25] MEDS: HYDROcodone/acetaminophen (*CRX) 10-325 MG TABLET 1 TAB PO (17:55)
[2023-05-25 19:30] VITALS: BP 145/72; PULSE 97; RESP 16; TEMP 36.8; O2SAT 100
[2023-05-26] MEDS: HYDROcodone/acetaminophen (*CRX) 5-325 MG TABLET 1 TAB PO ×3 (01:07→20:10)
[2023-05-26] MEDS: IBUPROFEN 600 MG TABLET PO ×3 (01:07→17:36)
--- NOTE | 2023-05-26 07:30 | PC.NURSE ---
PT introductions made and plan of care discussed per post op c section, pain management, breast pumping, daily care activities and pending discharge to home. PT and spouse both recipients of such instructions and no barriers to learning identified at this time. PT received such instructions per one to one discussion, mom baby care guide and demonstrations this shift and pt verbalized understanding of such care.
[2023-05-26] MEDS: SIMETHICONE 80 MG TAB.CHEW PO ×3 (07:48→17:34)
[2023-05-26 08:02] VITALS: BP 156/87; PULSE 93; RESP 16; TEMP 36.5; O2SAT 99
--- NOTE | 2023-05-26 08:50 | PM.OBPNVD ---
OB - PN: Subj Subjective Date/time seen: 05/26/23 08:50 Interval history: POD#2 s/p c hyst Doing well, pain increased after ambulating yesterday Normal bladder function, however some dysuria, passing flatus OB - PN: Obj Data Labs 05/25/23 05:31 05/24/23 06:09 OB - PN A/P Assessment and Plan (1) Chronic hypertension affecting : Code(s): O10.919 - Unspecified pre-existing hypertension complicating , unspecified trimester Status: Acute Assessment and Plan: Monitor BPs closely (2) Dysuria: Code(s): R30.0 - Dysuria Status: Acute Assessment and Plan: urine culture ordered Plan day: 2 Plan: routine care Time Spent With Patient Time: Total time spent is greater than 50% in coordination of care (as documented) at patient's floor/unit and/or counseling patient: Review of Systems Review of Systems: All systems reviewed & are unremarkable except as noted in HPI and below Exam Const: General: comfortable, no acute distress, alert and awake Resp: Effort & Inspection: normal respiratory effort GI: GI Palp: Yes Soft to palpation Other: incision c/d/i
--- NOTE | 2023-05-26 11:20 | PC.NURSE ---
On 05/26/23, the student, Deb Villalta, provided care and completed [employer] documentation on this patient. I have reviewed the student's documentation and agree with the findings.
[2023-05-26] MEDS: HYDROcodone/acetaminophen (*CRX) 10-325 MG TABLET 1 TAB PO ×2 (11:28→17:35)
--- NOTE | 2023-05-26 11:45 | PC.NURSE ---
PT left unit via wheelchair accompanied by spouse and taken to waiting car to [facility]. Pt on 4-6 hour pass.
[2023-05-26 12:24] VITALS: BP 147/80; PULSE 91; RESP 18; TEMP 36.6; O2SAT 99
--- NOTE | 2023-05-26 16:30 | PC.NURSE ---
[facility] and taken to room 291 via wheelchair
[2023-05-26 20:00] VITALS: BP 152/83; PULSE 82; RESP 18; TEMP 36.6; O2SAT 99
[2023-05-27] MEDS: IBUPROFEN 600 MG TABLET PO ×2 (01:07→07:11)
[2023-05-27] MEDS: HYDROcodone/acetaminophen (*CRX) 5-325 MG TABLET 1 TAB PO ×2 (01:08→07:10)
[2023-05-27 07:10] VITALS: PULSE 80; RESP 18; O2SAT 98
[2023-05-27] MEDS: SIMETHICONE 80 MG TAB.CHEW PO ×2 (07:10→10:54)
[2023-05-27 07:30] VITALS: BP 141/75; PULSE 80; RESP 18; TEMP 36.6; O2SAT 98
--- NOTE | 2023-05-27 08:35 | PM.GYNPNOP ---
STONE FINISHER - A/P Postoperative Procedures: Procedures Operation Date: 05/24/23 07:30 Actual Procedure Side Surgeon p Repeat Section Bilateral Ainsley Del Cid MD s Abdominal Hysterectomy BSO Exp Lap Academic Affairs Director Ainsley Del Cid MD Time Spent With Patient Time: Total time spent is greater than 50% in coordination of care (as documented) at patient's floor/unit and/or counseling patient: Time with patient: less than 15 minutes STONE FINISHER- PN:Subj Post-Op Subjective Date/time seen: 05/27/23 08:35 Interval history: POD#2 s/p c hyst Doing well, pain increased after ambulating yesterday Normal bladder function, however some dysuria, passing flatus Exam Const: General: comfortable, no acute distress and alert Resp: Effort & Inspection: normal respiratory effort Auscultation: no crackles, no rales and no rhonchi Cardio: Rate: regular rate Heart sounds: no click, no murmurs and no rubs GI: Inspection: non-distended GI Palp: No Tenderness to palpation present (GI) Auscultation: normal bowel sounds Other: Incision - CDI Extrem: General: normal to inspection, no pedal edema and no calf tenderness STONE FINISHER - PN: Obj Data Vital Signs Vital Signs: Vital Signs - 24 hr 05/26/23 12:24 05/26/23 20:00 Temperature 97.9 F 97.9 F Pulse Rate 91 82 Respiratory Rate 18 18 Blood Pressure 147/80 H 152/83 H Pulse Oximetry 99 99 Intake/Output Intake/Output: Intake & Output 05/24/23 05/25/23 05/26/23 05/27/23 23:59 23:59 23:59 23:59 Intake Total 1290 1000 480 Output Total 170 2500 Balance 1120 -1500 480 Meds/Results Medications: Active Medications Generic Name Dose Route Start Last Admin Trade Name Freq PRN Reason Stop Dose Admin Acetaminophen 650 mg 05/24/23 13:06 Acetaminophen 325 Mg Tablet PO Q6H PRN Mild Pain (1-3) Hydrocodone Bitart/Acetaminophen 1 tab 05/24/23 13:06 05/26/23 17:35 Hydrocodone/Acetaminophen (*Crx) 10-325 Mg Tablet PO 1 tab Q3H PRN Administration Pain Rated 7-10 Hydrocodone Bitart/Acetaminophen 1 tab 05/24/23 13:06 05/27/23 07:10 Hydrocodone/Acetaminophen (*Crx) 5-325 Mg Tablet PO 1 tab Q3H PRN Administration Moderate Pain (4-6) Bisacodyl 10 mg 05/24/23 13:06 Bisacodyl 10 Mg Suppository RECTAL ONCE PRN Constipation Docusate Sodium 100 mg 05/24/23 17:00 05/26/23 17:00 Docusate Sodium 100 Mg Capsule PO Not Given BID GIANA Emollient Ointment 1 applic 05/24/23 13:06 Lanolin (Lansinoh) 7.5 Gm Cream TOPICAL PRN PRN Sore Nipples Hydrochlorothiazide 25 mg 05/25/23 21:00 05/26/23 21:00 Hydrochlorothiazide 25 Mg Tablet PO Not Given HS GIANA Ibuprofen 600 mg 05/24/23 13:06 05/27/23 07:11 Ibuprofen 600 Mg Tablet PO 600 mg Q6H PRN Administration Cramping Vit/Calcium/Iron/Folic Ac 1 tab 05/25/23 09:00 05/26/23 07:51 Multivit/Min/Pren/Fol Ac/Iron Tablet PO Not Given DAILY GIANA Simethicone 80 mg 05/24/23 13:06 05/27/23 07:10 Simethicone 80 Mg Tab.Chew PO 80 mg Q2H PRN Administration Gas Zolpidem Tartrate 5 mg 05/24/23 13:06 Zolpidem Tartrate (*Crx) 5 Mg Tablet PO HS PRN Insomnia Labs 05/25/23 05:31 05/24/23 06:09
--- NOTE | 2023-05-27 08:37 | PM.OBDSVD ---
DS: Admitting Diagnosis Discharge Date May 27 2023 Admitting Diagnosis term DS: Discharge Diagnosis Discharge Diagnosis (1) Delivery by hysterectomy: Code(s): O82 - Encounter for delivery without indication Status: Acute OB - DS: Summary OB Procedures : None OB Procedures Intrapartum: hysterectomy OB Procedures: : None Peripartum Data Procedures: Procedures Operation Date: 05/24/23 07:30 Actual Procedure Side Surgeon p Repeat Section Bilateral Ainsley Del Cid MD s Abdominal Hysterectomy BSO Exp Lap Pediatric Physical Therapist Ainsley Del Cid MD Time Spent with Patient Time attestation: Total time spent providing and/or coordinating discharge services: DS: Data Data Completed and Pending Completed studies during hospitalization: Pending at discharge 05/24/23 08:40 Surgical [PTH] Routine Surgical [PTH] Routine Pending studies at discharge: Pending at discharge 05/24/23 09:33 Surgical [PTH] Routine Discharge Plan Discharge Discharging Clinician: Ainsley Del Cid Patient Disposition: Home, Self-Care Activity: pelvic rest Diet: regular Discharge Instructions: Education: Mom and Baby Guide Given to: Mother Follow-Up: Call your delivering provider's office for an appointment to be seen in: 1 Week Mom and baby should come to the [facility] for the follow-up appointment. Appointment Date/Time: May 28, 2023 at 11:00 am What to expect at your follow-up visit: Blood Pressure Check Call [phone] if you are unable to keep your appointment time. BREAST CARE: * Wear a snug supportive bra. * For engorgement discomfort: Breast Feeding: * Apply warm moist washcloths * Express milk as needed to relieve engorgement * Wear loose clothing Bottle Feeding: * May apply ice packs * For sore nipples: * Identify correct latch-on * Apply warm moist washcloths before and after nursing * Air dry nipples after nursing * May apply Lansinoh cream to nipples ABDOMINAL INCISION: (if applicable) * Allow incision to air dry * Do NOT use lotions for powders on your incision * When showering, allow soap and water to run over the incision, but do not wash incision PERINEAL CARE: * Until bleeding stops, use your cathie bottle after urinating * Change your pad frequently throughout the day * No tub baths until seen by your physician - You may shower ACTIVITY: * Rest as much as possible. * Do not exercise or lift anything heavier than your baby (such as laundry or other children.) * Avoid stairs or driving as much as possible. * Do not put anything into the vagina. No douching, tampons, or sexual activity until seen by physician. NOTIFY PHYSICIAN IF YOU HAVE ANY QUESTIONS OR IF ANY OF THE FOLLOWING SYMPTOMS OCCUR: * If your incision becomes red, swollen, or more painful than what you have experienced in the hospital. * If your vaginal bleeding becomes foul smelling. * If your vaginal bleeding becomes more heavy than a period or if your bleeding changes from pink to bright red. However, you may pass an occasional walnut-sized clot once or twice for the first week . * If you experience a sharp, shooting pain in you calves. * If you discover a hard, reddened area on your breast or if you experience flu-like symptoms. * If you have a fever of 100.4 or greater DIET: * Eat regular, well-balanced meals. * Drink plenty of fluids daily. If , drink to thirst. Patient Instructions: Antibiotic Form Stand Alone Forms: General Discharge Information Follow-up/Referrals: Ainsley Del Cid MD [Physician] - Discharge Medications: New oxycodone-acetaminophen 5-325 mg tablet 1 tablet PO Q4H PRN (Reason: pain) Qty: 25 0RF Continued hydrochlorothiazide 25 mg Tablet 25 mg PO DAILY
[2023-05-27] MEDS: HYDROcodone/acetaminophen (*CRX) 10-325 MG TABLET 1 TAB PO (10:54)
--- NOTE | 2023-05-27 11:00 | PC.NURSE ---
PT received discharge instructions per protocol ad verbalized understanding of such care.
--- NOTE | 2023-05-27 11:25 | PC.NURSE ---
PT discharged to home ambulatory accompanied by spouse and taken to waiting car. Follow up appts confirmed
== END 2023-05-27 11:25 | disposition home or self-care (01) | DRG 539 ==
LOC: ANHLDR 05:44 → ANHOB2 13:35
PROVIDERS: Admitting Provider Obstetrics & Gynecology; PCP Nurse Practitioner Family; Visit Provider Obstetrics & Gynecology
PROC: 10D00Z1 Extraction of Products of Conception, Low, Open Approach (ICD-10-PCS; CPT 59514; principal; 2023-05-24 07:30)
PROC: 0UT94ZZ Resection of Uterus, Percutaneous Endoscopic Approach (ICD-10-PCS; 2023-05-24 07:30)
DX: O34.219 Maternal care for unspecified type scar from previous cesarean delivery (principal); O10.92 Unspecified pre-existing hypertension complicating childbirth; N99.61 Intraoperative hemorrhage and hematoma of a genitourinary system organ or structure complicating a genitourinary system procedure; O99.214 Obesity complicating childbirth; E66.01 Morbid (severe) obesity due to excess calories; O24.429 Gestational diabetes mellitus in childbirth, unspecified control; Z3A.37 37 weeks gestation of pregnancy; Z37.0 Single live birth; Z30.2 Encounter for sterilization
CPT/HCPCS: 36415; 80053; 82948; 85025; 85027; 86592; 86850; 86900; 86901; 87086; 88302; 88307; A9270; J2274; J3010; J7120

== ENCOUNTER 2024-02-29 17:22 | Emergency (ER) | payer OTHER, SELFPAY ==
[2024-02-29 17:32] VITALS: BP 146/80; PULSE 89; RESP 16; TEMP 36.7; O2SAT 100
--- NOTE | 2024-02-29 17:50 | ED.URI ---
HPI - URI/Sore Throat General Chief Complaint: Upper Respiratory Infection Stated Complaint: right ear/mouth swollen,cough,bodyaches Time Seen by Provider: 02/29/24 18:09 Source: patient, RN notes reviewed and old records reviewed Mode of arrival: ambulatory Limitations: no limitations History of Present Illness HPI Narrative: 38-year-old female presents to the [facility] with complaints of body aches, right ear pain, started with left ear pain prior to arrival, body aches, sinus pressure just on the right No treatment prior to arrival Treatments prior to arrival: none Related Data Allergies Allergy/AdvReac Type Severity Reaction Status Date / Time desloratadine Allergy Severe Anaphylaxis Verified 02/29/24 17:26 ketorolac Allergy Mild Hives Verified 02/29/24 17:26 amoxicillin AdvReac Mild Gastrointestinal Verified 02/29/24 17:26 Upset clavulanic acid AdvReac Mild Gastrointestinal Verified 02/29/24 17:26 Upset Penicillins AdvReac Gastrointestinal Verified 02/29/24 18:20 Upset Review of Systems Review of Systems: All systems reviewed & are unremarkable except as noted in HPI and below Constitutional: Constitutional: Reports no additional constitutional complaints Eyes: Eyes: Reports no additional eye complaints ENT: Reports as per HPI and Reports otalgia Cardiovascular: Cardiovascular: Reports no additional cardiovascular complaints, Denies chest pain and Denies dyspnea Respiratory: Respiratory: Reports no additional respiratory complaints, Denies chest congestion, Denies cough and Denies dyspnea Gastrointestinal: Gastrointestinal: Reports no additional gastrointestinal complaints, Denies abdominal pain, Denies nausea and Denies vomiting Musculoskeletal: Musculoskeletal: Reports no additional musculoskeletal complaints Integumentary/Breasts: Skin/Breast: Reports system reviewed and no additional complaints, except as docu Neurologic: Reports system reviewed and no additional complaints, except as documented Psychiatric: Psychiatric: Reports no additional psychiatric complaints Allergic/Immunologic: Allergic/Immunologic: Reports no additional allergic/immunologic complaints [facility] Past Medical History Medical History Diabetes in History of PCOS HTN (hypertension) Morbid obesity Polycystic ovarian syndrome Surgical History Surgical History History of section History of partial hysterectomy Family History Family History Mother No problems noted. Grandparent Hypertension Congestive heart failure Diabetes mellitus Legal Guardian No problems noted. Social History Social History Smoking status: Never smoker Alcohol intake: current Substance use: never Lack of Transportation: No Lack of Food: Never True Current Housing: I Have Housing Concerned About Future Housing: No Difficulty Paying Gas/Electric Bills: No Difficulty Paying for Meds: No Currently Unemployed: No Education: Trade/Vocational Certificate Difficulty w/ Childcare or Family Care: No Spiritual care concerns: No Comments At the time of my signature, I reviewed and agree with the nursing past medical, surgical, social, and family history. There is no relevant family history pertinent to the patient complaint. Exam Const: General: cooperative, healthy appearing, comfortable, no acute distress, well developed, alert and well nourished Nutritional Appearance: well nourished and obese Orientation/consciousness: patient oriented x3 Limitations: no limitations HENMT: Head: normal to inspection Ears: hearing grossly normal bilaterally, external ears normal, Abnormal EAC present erythema on the right; no edema, no foreign body and no otic discharge and TM abnormal
[2024-02-29 17:54] LABS: EDSTREPNEGPOS1 Negative
[2024-02-29 17:57] LABS: EDINFLUASCREEN Negative; EDINFLUBSCREEN Negative
== END 2024-02-29 18:25 | disposition home or self-care (01) ==
PROVIDERS: Emergency Provider Nurse Practitioner; PCP Nurse Practitioner Family
DX: K04.7 Periapical abscess without sinus (principal); H92.03 Otalgia, bilateral; J06.9 Acute upper respiratory infection, unspecified; Z20.822 Contact with and (suspected) exposure to COVID-19; I10 Essential (primary) hypertension; E28.2 Polycystic ovarian syndrome; E66.01 Morbid (severe) obesity due to excess calories; Z68.43 Body mass index [BMI] 50.0-59.9, adult
CPT/HCPCS: 87081; 87426; 87804; 87880; 99213; G0463

== ENCOUNTER 2024-11-14 17:51 | Emergency (ER) | payer OTHER, SELFPAY ==
--- NOTE | 2024-11-14 17:55 | ED.URI ---
HPI - URI/Sore Throat General Chief Complaint: Upper Respiratory Infection Stated Complaint: Chills/Vomiting/Bodyaches Time Seen by Provider: 11/14/24 17:55 Source: patient Mode of arrival: ambulatory Limitations: no limitations History of Present Illness HPI Narrative: Kylah is a 39-year-old female patient presenting to the clinic today with complaints of nausea, nasal congestion, sore throat, vomiting, body aches, and chills times 2-3 days. She reports has had vomiting x2. Has also had a couple episodes of diarrhea. No known fever. MD elicited complaint: sore throat and nasal congestion Related Data Allergies Allergy/AdvReac Type Severity Reaction Status Date / Time desloratadine Allergy Severe Anaphylaxis Verified 11/14/24 18:07 ketorolac Allergy Mild Hives Verified 11/14/24 18:07 amoxicillin AdvReac Mild Gastrointestinal Verified 11/14/24 18:07 Upset clavulanic acid AdvReac Mild Gastrointestinal Verified 11/14/24 18:07 Upset Penicillins AdvReac Gastrointestinal Verified 11/14/24 18:07 Upset Review of Systems Review of Systems: Pertinent positives per HPI. Patient denies any fever, rash, headache, visual changes, dizziness, shortness of breath, chest pain, palpitations, diarrhea, constipation, abdominal pain, or any urinary issues. [facility], [facility] Past Medical History Medical History Diabetes in History of PCOS HTN (hypertension) Morbid obesity Polycystic ovarian syndrome Surgical History Surgical History History of partial hysterectomy History of section Family History Family History Mother No problems noted. Grandparent Hypertension Congestive heart failure Diabetes mellitus Legal Guardian No problems noted. Social History Social History Smoking status: Never smoker Alcohol intake: current Substance use: never Lack of Transportation: No Lack of Food: Never True Current Housing: I Have Housing Concerned About Future Housing: No Difficulty Paying Gas/Electric Bills: No Difficulty Paying for Meds: No Currently Unemployed: No Education: Trade/Vocational Certificate Difficulty w/ Childcare or Family Care: No Spiritual care concerns: No Comments At the time of my signature, I reviewed and agree with the nursing past medical, surgical, social, and family history. There is no relevant family history pertinent to the patient complaint. Exam Narrative: General: Well-developed, morbidly obese, in no apparent distress Head: Normocephalic, atraumatic Eyes: Pupils equally round and reactive to light bilaterally, EOM intact, sclera and conjunctive clear, no discharge, lids normal Ears: TMs intact and clear, ear canals clear, no drainage, grossly hearing normal. Nose: Nares patent, clear nasal discharge, no inflammation, no sinus tenderness. Mouth: Oral pharynx red without lesions or masses, good dentition, MMM. Postnasal drip Neck: Supple, trachea midline, no enlargement of anterior or posterior cervical nodes, no thyroid masses or goiter palpable. Cardio: Regular rate and rhythm, s1 and s2 normal, no murmur appreciated. Resp: Clear to auscultation bilaterally, no rhonchi, rales, wheezing or rubs Course Course Emergency Course: Portions of this record may have been created with voice recognition software. Level of Care: Express Care Visit Vital Signs Vital signs: Vital Signs Temperature 36.8 C 11/14/24 18:07 Pulse Rate 76 11/14/24 18:07 Respiratory Rate 20 11/14/24 18:07 Blood Pressure 151/91 H 11/14/24 18:07 Pulse Oximetry 100 11/14/24 18:07 Oxygen Delivery Room Air 11/14/24 18:07 Temperature 36.8 C 11/14/24 18:07 Pulse Rate 76 11/14/24 18:07 Respiratory Rate 20 11/14/24 18:07 Blood Pressure 151/91 H 11/14/24 18:07 Pulse Oximetry 100 11/14/24 18:07 Oxygen Delivery Room Air 11/14/24 18:07 Vital signs reviewed MDM - URI/Sore Throat MDM Narrative Medical decision making narrative: At the time of visit patient is resting comfortably on the exam table. Patient appears to be nontoxic. Labs: Strep, COVID, and influenza testing was all performed. All testing was negative. We will send strep for culture. Plan: I suspect patient has URI/pharyngitis. Supportive measures were discussed with the patient and they voiced understanding discharge instructions and agrees to treatment plan. Return precautions reviewed Differential Diagnosis Differential diagnosis: Likely upper respiratory infection, otitis media, sinusitis, viral infection, bronchitis, influenza, pharyngitis and other (COVID) Discharge Plan Discharge Clinical Impression: Viral infection Upper respiratory infection Qualifiers: URI type: unspecified URI Qualified Code(s): J06.9 - Acute upper respiratory infection, unspecified Pharyngitis Qualifiers: Pharyngitis/tonsillitis etiology: unspecified etiology Qualified Code(s): J02.9 - Acute pharyngitis, unspecified Patient Disposition: Home Condition: Stable Instructions: Antibiotic Form, Pharyngitis (ED), Upper Respiratory Infection (ED) Additional Instructions: COVID, influenza, and strep test were all negative. We will send strep for culture. Increase fluids and stay well hydrated Tylenol/motrin for pain/fever Flonase and OTC antihistamines as directed Vicks vapor rub to open sinuses Sinus rinses for congestion Cepacol spray, cough drops, throat lozenges, warm tea with honey/lemon, gargle salt water to soothe throat BRAT diet for diarrhea Clear liquids x 24 hours then advance as tolerated for nausea/vomiting Go to the ED if you develop a worsening in your condition- high fever not controlled by Tylenol or Motrin, dehydration, weakness, lethargy, shortness of breath, or chest pain. Follow up with your PCP in 3-5 days if symptoms persist. Patient Language: Kazakh Prescriptions: No Action clindamycin HCl 300 mg capsule 300 mg PO Q8H 7 Days Qty: 21 0RF [id number] 3.5-10,000-1 mg/mL-unit/mL-% drops,suspension 4 drp RIGHT EAR Q6H 5 Days Qty: 10 0RF cholecalciferol (vitamin D3) 1,250 mcg (50,000 unit) capsule 1,250 mcg PO WEEKLY Qty: 6 0RF Follow-up/Referrals: Rosa,CRISTIANE Coulter [Primary Care Provider] - Stand Alone Forms: Work/School Release IP Time of Disposition: 18:28 Quality NIHSS Nursing Documentation ED NIHSS nursing documentation: reviewed/agree
[2024-11-14 18:07] VITALS: BP 151/91; PULSE 76; RESP 20; TEMP 36.8; O2SAT 100
[2024-11-14 18:43] LABS: EDCOVIDSCREEN Negative (Negative); EDINFLUASCREEN Negative (Negative); EDINFLUBSCREEN Negative (Negative); EDSTREPNEGPOS1 Negative (Negative)
== END 2024-11-14 18:42 | disposition home or self-care (01) ==
PROVIDERS: Emergency Provider Nurse Practitioner Family; PCP Nurse Practitioner
DX: B34.9 Viral infection, unspecified (principal); J06.9 Acute upper respiratory infection, unspecified; J02.9 Acute pharyngitis, unspecified; Z20.822 Contact with and (suspected) exposure to COVID-19; I10 Essential (primary) hypertension; E28.2 Polycystic ovarian syndrome; E66.01 Morbid (severe) obesity due to excess calories; Z68.44 Body mass index [BMI] 60.0-69.9, adult; Z90.711 Acquired absence of uterus with remaining cervical stump
CPT/HCPCS: 87081; 87426; 87804; 87880; 99213; G0463

== ENCOUNTER 2025-05-14 09:02 | Emergency (ER) | payer OTHER, SELFPAY ==
[2025-05-14 09:12] VITALS: BP 143/88; PULSE 72; RESP 18; TEMP 36.6; O2SAT 100
--- NOTE | 2025-05-14 09:24 | ED.URI ---
HPI - URI/Sore Throat General Chief Complaint: Upper Respiratory Infection Stated Complaint: Cough/Sinus Time Seen by Provider: 05/14/25 10:13 Source: patient and RN notes reviewed Mode of arrival: ambulatory Limitations: no limitations History of Present Illness HPI Narrative: 40-year-old female presents with concern for 2 day history of nasal congestion, cough, body aches, chills, ear pain and sore throat. Reports the sore throats bothering her the most. She reports 2 episodes of vomiting today. She is take Tylenol. MD elicited complaint: sore throat and nasal congestion Related Data Home Medications ?Medication ?Instructions ?Recorded ?Confirmed ?Last Taken ?Type amlodipine 2.5 mg tablet mg 05/14/25 Unknown History hydrochlorothiazide 25 mg tablet mg 05/14/25 Unknown History Allergies Allergy/AdvReac Type Severity Reaction Status Date / Time desloratadine Allergy Severe Anaphylaxis Verified 05/14/25 09:55 ketorolac Allergy Mild Hives Verified 05/14/25 09:55 amoxicillin AdvReac Mild Gastrointestinal Verified 05/14/25 09:55 Upset clavulanic acid AdvReac Mild Gastrointestinal Verified 05/14/25 09:55 Upset Penicillins AdvReac Gastrointestinal Verified 05/14/25 09:55 Upset Review of Systems Review of Systems: CONSTITUTIONAL: Reports malaise, chills, sweats, or fever. EYES: Denies visual changes, redness, or discharge. ENT: Reports rhinorrhea, congestion, and sore throat. CARDIOVASCULAR: Denies chest pain, palpitations, or edema. RESPIRATORY: Reports cough. Denies dyspnea. GASTROINTESTINAL: Denies abdominal pain, diarrhea. Reports nausea took some SKIN: Denies rash or itching. MUSCULOSKELETAL: Reports myalgia. NEUROLOGIC: Reports headache. All systems reviewed & are unremarkable except as noted in HPI and below PMFSH Past Medical History Medical History Diabetes in History of PCOS HTN (hypertension) Morbid obesity Polycystic ovarian syndrome Surgical History Surgical History History of partial hysterectomy History of section Family History Family History Mother No problems noted. Grandparent Hypertension Congestive heart failure Diabetes mellitus Legal Guardian No problems noted. Social History Social History Smoking status: Never smoker Alcohol intake: current Substance use: never Lack of Transportation: No Lack of Food: Never True Current Housing: I Have Housing Concerned About Future Housing: No Difficulty Paying Gas/Electric Bills: No Difficulty Paying for Meds: No Currently Unemployed: No Education: Trade/Vocational Certificate Difficulty w/ Childcare or Family Care: No Spiritual care concerns: No Comments At time of signature, agree with nursing past medical, surgical, social and family history. There is no relevant family history pertinent to the presenting complaint Exam Narrative: GENERAL: Nontoxic-appearing, well-nourished, and in no acute distress. HEAD: Normocephalic EYES: PERRLA, conjunctivae clear ENT: Nares clear. Mucous membranes moist. TM pearly courtney with dull light reflex bilaterally; no tragal tenderness. Oropharynx not erythematous without lesions. Tonsils not enlarged and without exudate, no drooling, no hoarseness, no trismus, uvula midline. NECK: Supple. No lymphadenopathy CHEST: Clear to auscultation, breath sounds equal. No wheezing, rhonchi, rales, or stridor. No respiratory distress, speaks in full sentences. HEART: Regular rate and rhythm. No murmur heard. SKIN: Warm, dry, no rash. NEURO: Alert and oriented x3. PSYCH: Normal mood and affect Course Course Emergency Course: Patient is aware of diagnosis, understands and agrees to treatment plan. Anticipatory guidance given. Patient agrees to follow-up as directed and is aware of reasons to seek care at the emergency department. Portions of this record may have been created with voice recognition software Level of Care: Express Care Visit Vital Signs Vital signs: Vital Signs Temperature 97.9 F 05/14/25 09:12 Pulse Rate 72 05/14/25 09:12 Respiratory Rate 18 05/14/25 09:12 Blood Pressure 143/88 H 05/14/25 09:12 Pulse Oximetry 100 05/14/25 09:12 Oxygen Delivery Room Air 05/14/25 09:12 Temperature 97.9 F 05/14/25 09:12 Pulse Rate 72 05/14/25 09:12 Respiratory Rate 18 05/14/25 09:12 Blood Pressure 143/88 H 05/14/25 09:12 Pulse Oximetry 100 05/14/25 09:12 Oxygen Delivery Room Air 05/14/25 09:12 Reviewed. MDM - URI/Sore Throat MDM Narrative Medical decision making narrative: Differential diagnosis considered: [place] virus, strep pharyngitis, allergic rhinitis, upper respiratory tract infection, sinusitis, rhinosinusitis, nasopharyngitis. viral pharyngitis, otitis media, otitis externa, pneumonia, bronchitis, viral cough syndrome, viral syndrome, and influenza. Exam findings show no acute concerns or changes; patient is non-toxic appearing and is in no distress. Patient is appropriate for outpatient treatment and follow-up. Lab Data Attestation: I reviewed the patient's lab results. Labs: Lab Results 05/14/25 05/14/25 Range/Units 10:02 10:09 POC Influenza A Ag Negative (Negative) POC Influenza B Ag Negative (Negative) POC SARS CoV-2 Ag Negative (Negative) POC Grp A Strep Screen Negative (Negative) Critical Care Time Critical Care Time Critical Care Time: No Discharge Plan Discharge Clinical Impression: Upper respiratory infection Patient Disposition: Home Condition: Stable Instructions: Upper Respiratory Infection (ED) Additional Instructions: Your rapid COVID and flu tests are negative Your rapid strep swab was negative today at [facility]. A throat culture will be sent to the laboratory for further testing. If the test is positive, you will receive a phone call within 48 hours and an appropriate antibiotic will be initiated at that time. Your symptoms are likely due to a viral illness, which is not treated with antibiotics. Viral symptoms can be present for up to a few weeks. -Alternate Tylenol and Motrin per package directions for fever or pain. -Antihistamine medication such as Benadryl at night and Zyrtec during the day can help improve symptoms. -Eat and drink things that are easy to swallow, like tea or soup, or popsicles to suck on. -Oral rinses such as: Salt water gargles and/or may use topical anesthetic (eg. Chloraseptic spray) or lozenges to relieve dryness or throat pain). -Frequent hand washing or hand clinical research assistant is one of the best ways to prevent spread of infection. -Follow up with primary care provider in 2-3 days if condition is not improving; or seek ER visit if you have trouble breathing, cannot drink enough fluids, have muffled voice, difficulty opening your mouth, or severe swelling. Patient Language: Cymro Prescriptions: New methylprednisolone [Medrol (Akshat)] 4 mg tablets,dose pack See Rx Instructions .ROUTE .COMPLEX Qty: 21 0RF Rx Instructions: orally per package directions No Action amlodipine 2.5 mg tablet hydrochlorothiazide 25 mg tablet Follow-up/Referrals: Rosa,CRISTIANE Coulter [Primary Care Provider] Stand Alone Forms: Work/School Release IP Time of Disposition: 10:22
[2025-05-14 10:03] LABS: EDSTREPNEGPOS1 Negative (Negative)
[2025-05-14 10:11] LABS: EDCOVIDSCREEN Negative (Negative); EDINFLUASCREEN Negative (Negative); EDINFLUBSCREEN Negative (Negative)
== END 2025-05-14 10:48 | disposition home or self-care (01) ==
PROVIDERS: Emergency Provider Nurse Practitioner; PCP Nurse Practitioner
DX: J06.9 Acute upper respiratory infection, unspecified (principal); I10 Essential (primary) hypertension; Z79.899 Other long term (current) drug therapy; Z20.822 Contact with and (suspected) exposure to COVID-19
CPT/HCPCS: 87081; 87426; 87804; 87880; 99213; G0463